=== PATIENT | male | born 1975 | race Caucasian/White ===

== ENCOUNTER 2016-10-17 17:43 | Emergency (ER) | payer MEDICARE, MEDICAID ==
[2016-10-17] MEDS ORDERED: ACETAMINOPHEN 500 MG TABLET PO ONE (18:26)
--- NOTE | 2016-10-17 18:35 | ERNOTE ---
Date of Service: 10/17/16 Time Seen by Provider: 10/17/16 18:12 Stated Complaint: COUGH. Presenting Symptoms:: cough, sore throat, runny nose, fever Source: patient Exam Limitations: no limitations Allergies/Adverse Reactions: Allergies No Known Allergies Allergy (Verified 10/17/16 17:53) Home Medications: HOME MEDICATIONS Furosemide [Lasix] 40 mg PO DAILY 09/16/12 [Last Taken 06/07/13] Spironolactone [Aldactone] 25 mg PO DAILY 09/16/12 [Last Taken 06/07/13] Atorvastatin Calcium [Lipitor] 40 mg PO HS #0 tablet 06/11/13 [Last Taken Unknown] Metoprolol Succinate [Toprol Xl] 200 mg PO DAILY #0 tablet.sa 06/11/13 [Last Taken Unknown] Losartan Potassium 50 mg PO DAILY 01/31/14 [Last Taken Unknown] Gemfibrozil [Lopid] 600 mg PO BID@0700,1700 #0 tablet 02/21/14 [Last Taken Unknown] Insulin Glargine,Hum.rec.anlog [Lantus] 70 units SC DAILY #0 vial 02/21/14 [ Last Taken Unknown] Insulin Lispro [Humalog] 0 - 16 units SC AC #0 vial 02/21/14 [Last Taken Unknown ] Acetaminophen [Tylenol] 1,000 mg PO TID #14 tablet 10/17/16 [Last Taken Unknown] Fenofibrate 134 mg PO DAILY 10/17/16 [Last Taken Unknown] Guaifenesin [Mucinex] 1,200 mg PO BID #10 tbmp.12hr 10/17/16 [Last Taken Unknown ] Oseltamivir Phosphate [Tamiflu] 75 mg PO DAILY #9 cap 10/17/16 [Last Taken Unknown] Pregabalin [Lyrica] 300 mg PO BID 10/17/16 [Last Taken Unknown] Tramadol HCl [Rybix Odt] 50 mg PO BID PRN 10/17/16 [Last Taken Unknown] - Pain Score Pain Score #1 Pain Score: 4 - History of Present Ilness Narrative: patient is a 41 year old obese male with known history of insulin dependent diabetes and heavy tobacco use (2ppd) and "heart issues" who presents today with complaints of a sudden onset of dry cough, fever, chills, body aches, nasal drainage and nausea since last night. States he felt fine yesterday afternoon yet sudden onset last night. [facility] has not been around sick contacts and nobody in house is ill. [facility] blood sugars were WNL yesterday but has not checked them today. Denies difficulty breathing or CP Date (Duration): 10/16/16 Timing: constant, getting worse Severity: moderate Frequency/Possible Cause: Reports: no prior episodes, smoke exposure Modifying Factors - Improves: Reports: nothing Modifying Factors - Worsens: Reports: activity, coughing, deep breath Associated Symptoms: Reports: cough, nasal congestion, nasal drainage, muscle aches, fever/chills Review of Systems - Review of Systems Constitutional: Present: See HPI, fever, chills, weakness, fatigue EYE: Present: see HPI ENT: Present: See HPI, nasal drainage, throat swelling Respiratory: Present: See HPI, cough. Absent: shortness of breath, orthopnea, wheezing, stridor Cardiology: Present: See HPI. Absent: chest pain, palpitations, syncope, edema Gastrointestinal/Abdominal: Present: See HPI, nausea, eating less, drinking less. Absent: vomiting, diarrhea, abdominal pain Genitourinary: Present: no symptoms reported Musculoskeletal: Present: no symptoms reported. Absent: back pain, muscle pain , muscle stiffness, joint pain, joint swelling Skin: Absent: rash, lesions, change in color Neurological: Present: no symptoms reported, headache. Absent: dizziness/light- headedness, weakness, numbness, tingling, tremors Hematologic/Lymphatic: Absent: swollen glands - Patient's Past Medical History Patient History - Medical: Anxiety, Chronic Pain, Diabetes Type 2 Insulin Dependent, GERD Patient History - Cancer: No Hx of Cancer Patient History - Surgical Procedures: Appendectomy, T & A, Other - Social History Smoking Status: Current every day smoker Have you smoked in the past 12 months: Yes Physical Exam - Physical Exam General Appearance: Present: wd/wn, alert, no apparent distress Eye Exam: PERRL: bilateral, Conjunctivae pale: bilateral Ears, Nose, Throat: Present: normal ENT inspection, hearing grossly normal, dry mucous membranes Neck: Present: normal inspection, nontender, supple. Absent: lymphadenopathy (R ), lymphadenopathy (L) Respiratory: Present: no respiratory distress, normal breath sounds, no accessory muscle use, chest nontender, lungs clear, wheezing. Absent: chest tenderness, respiratory distress Cardiovascular/Chest: Present: regular rate, rhythm, no murmur Peripheral Pulses: N=norm/S=strong/W=weak/B=bound/A=absent: Radial (R): Strong, Radial (L): Strong Gastrointestinal/Abdominal: Present: normal bowel sounds, nontender, nondistended, soft, no organomegaly Back Exam: Present: normal range of motion, no CVA tenderness, no vertebral tenderness Extremity Exam: Present: normal inspection, non-tender, no edema, normal range of motion Neurological Exam: Present: alert, oriented, normal mood/affect, no motor/ sensory deficits Skin Exam: Present: normal color, warm/dry Lymphatic Exam: Present: no adenopathy ED Progress - Vital Signs Patient's Vital Signs:: I have reviewed the patient's vital signs. Vital Signs: Vital Signs 10/17/16 17:50 Temperature 38.3 C H Pulse Rate 120 H Respiratory 14 Rate Blood Pressure 113/63 O2 Sat by Pulse 95 Oximetry - Progress/Reassessment Chief Complaint: Cough Departure - Departure Clinical Impression: Influenza A Disposition: Home Follow Up Needed Condition: Good Instructions: Smoking Cessation, Tips for Success, [id number], Influenza, Adult, [id number] Additional Instructions: Tylenol every 6 hours for fever and pain. Continue to drink water/Gatorade throughout the day. Referrals: Yael Murdock MD [Primary Care Provider] - Prescriptions: Acetaminophen [Tylenol] 1,000 mg PO TID #14 tablet Guaifenesin [Mucinex] 1,200 mg PO BID #10 tbmp.12hr Oseltamivir Phosphate [Tamiflu] 75 mg PO DAILY #9 cap
[2016-10-17] MEDS ORDERED: OSELTAMIVIR PHOSPHATE 75 MG CAPSULE PO ONE ×2 (19:05→19:09)
[2016-10-17 19:17] VITALS: BP 118/70
== END 2016-10-17 19:14 | disposition home or self-care (01) ==
LOC: ER 17:43
DX: J09.X2 Influenza due to identified novel influenza A virus with other respiratory manifestations (principal); F17.210 Nicotine dependence, cigarettes, uncomplicated; E11.9 Type 2 diabetes mellitus without complications; Z79.4 Long term (current) use of insulin

== ENCOUNTER 2016-10-21 23:22 | Emergency (ER) | payer MEDICARE, MEDICAID ==
[2016-10-21 23:44] LABS: Urine Bilirubin 1 mg/dl (NEGATIVE); Urine Blood 250 /ul (NEGATIVE); Urine Ketone Negative (NEGATIVE); Urine Nitrite Negative (NEGATIVE); Urine Protein 100 mg/dL (NEGATIVE); Urine Specific Gravity >=1.030 SP.GR. (1.005-1.030); Urine Urobilinogen Normal (NORMAL); Urine pH 5.5 pH (5.0-7.0)
--- NOTE | 2016-10-21 23:50 | ERNOTE ---
Back Pain ER HPI Time Seen by Provider: 10/21/16 23:39 Source: patient Exam Limitations: no limitations Immunizations: IMMUNIZATION HX Immunizations Up to Date Yes History of Influenza Vaccine No Hx Pneumococcal Vaccination No Allergies/Adverse Reactions: Allergies No Known Allergies Allergy (Verified 10/17/16 17:53) Home Medications: HOME MEDICATIONS Furosemide [Lasix] 40 mg PO DAILY 09/16/12 [Last Taken 06/07/13] Spironolactone [Aldactone] 25 mg PO DAILY 09/16/12 [Last Taken 06/07/13] Atorvastatin Calcium [Lipitor] 40 mg PO HS #0 tablet 06/11/13 [Last Taken Unknown] Metoprolol Succinate [Toprol Xl] 200 mg PO DAILY #0 tablet.sa 06/11/13 [Last Taken Unknown] Losartan Potassium 50 mg PO DAILY 01/31/14 [Last Taken Unknown] Gemfibrozil [Lopid] 600 mg PO BID@0700,1700 #0 tablet 02/21/14 [Last Taken Unknown] Insulin Glargine,Hum.rec.anlog [Lantus] 70 units SC DAILY #0 vial 02/21/14 [ Last Taken Unknown] Insulin Lispro [Humalog] 0 - 16 units SC AC #0 vial 02/21/14 [Last Taken Unknown ] Acetaminophen [Tylenol] 1,000 mg PO TID #14 tablet 10/17/16 [Last Taken Unknown] Fenofibrate 134 mg PO DAILY 10/17/16 [Last Taken Unknown] Guaifenesin [Mucinex] 1,200 mg PO BID #10 tbmp.12hr 10/17/16 [Last Taken Unknown ] Oseltamivir Phosphate [Tamiflu] 75 mg PO DAILY #9 cap 10/17/16 [Last Taken Unknown] Pregabalin [Lyrica] 300 mg PO BID 10/17/16 [Last Taken Unknown] Tramadol HCl [Rybix Odt] 50 mg PO BID PRN 10/17/16 [Last Taken Unknown] Narrative: pt states that he had rapid onset of right flank pain "like I was kicked by donkey" earlier this evening. continues to have pain and difficulty urinating Timing: Reports: constant, getting worse Quality/Severity: Reports: moderate, sharpness Activities at Onset: Reports: none Recent Injury?: Reports: no Modifying Factors - (Improves): Reports: nothing Modifying Factors - (Worsens): Reports: nothing Associated Symptoms: Reports: problems urinating Review of Systems - Review of Systems Constitutional: Present: recent illness - influenza diagnosed 4 days ago EYE: Present: no symptoms reported ENT: Present: no symptoms reported Respiratory: Present: cough Cardiology: Present: no symptoms reported Gastrointestinal/Abdominal: Present: no symptoms reported Genitourinary: Present: frequency, pain, decreased urinary output Musculoskeletal: Present: back pain Skin: Present: no symptoms reported Neurological: Present: no symptoms reported Endocrine: Present: no symptoms reported Hematologic/Lymphatic: Present: no symptoms reported Psych: Present: no symptoms reported - Patient's Past Medical History Patient History - Medical: Anxiety, Chronic Pain, Diabetes Type 2 Insulin Dependent, GERD, Kidney stone Patient History - Cancer: No Hx of Cancer Patient History - Surgical Procedures: Appendectomy, T & A, Other - Social History Living Situations: home Smoking Status: Current every day smoker Patient requests Smoking Cessation Consult: Yes Initiate information on Smoking Cessation: Yes Alcohol Use: none Drug Use: none Physical Exam - Physical Exam General Appearance: Present: wd/wn, alert, mild distress, moderate distress Ears, Nose, Throat: Present: normal ENT inspection, hearing grossly normal Respiratory: Present: no respiratory distress, no accessory muscle use Gastrointestinal/Abdominal: Present: normal bowel sounds, nontender Back Exam: Present: no vertebral tenderness, CVA tenderness (R). Absent: CVA tenderness (L), muscle spasm Extremity Exam: Present: normal inspection, normal range of motion Neurological Exam: Present: alert, oriented, no motor/sensory deficits Skin Exam: Present: normal color, warm/dry Lymphatic Exam: Present: no adenopathy ED Progress - Vital Signs Vital Signs: Vital Signs 10/21/16 23:29 Temperature 36.5 C Pulse Rate 89 Respiratory 18 Rate Blood Pressure 147/99 O2 Sat by Pulse 96 Oximetry - Progress/Reassessment Chief Complaint: Back Pain Departure Clinical Impression: Kidney stone - Departure Disposition: Home self-care Condition: Good Instructions: Kidney Stones, [id number] Additional Instructions: drink lots of fluids. See your regular doctor if not improving in 1-2 days Referrals: Yael Murdock MD [Primary Care Provider] -
[2016-10-21 23:55] LABS: Urine Appearance Clear; Urine Color Yellow; Urine WBC None Seen /hpf (0-5)
[2016-10-21 23:56] LABS: Urine Bacteria TRACE; Urine Fine Granular Cast 0-5 /LPF; Urine Hyaline Cast 0-5 /LPF
[2016-10-22] MEDS ORDERED: KETOROLAC TROMETHAMINE 60 MG/2 ML VIAL IM ONE ×2 (00:12→00:13)
[2016-10-22 02:11] VITALS: BP 134/88
== END 2016-10-22 01:35 | disposition home or self-care (01) ==
LOC: ER 23:22
DX: N20.0 Calculus of kidney (principal); F17.210 Nicotine dependence, cigarettes, uncomplicated

== ENCOUNTER 2019-06-13 17:53 | Observation (INO) ==
[2019-06-13] MEDS ORDERED: ONDANSETRON HCL/PF 2 MG/ML VIAL IV ONE (18:05)
[2019-06-13] MEDS ORDERED: NORMAL SALINE 1,000 ML IV ONE ×3 (18:05→21:47)
[2019-06-13] MEDS ORDERED: diphenhydrAMINE HCL 50 MG/ML VIAL IV ONE (18:06)
--- NOTE | 2019-06-13 18:14 | ERNOTE ---
<Bhavesh Tomlinson - Last Filed: 06/13/19 19:51> Medical Problem HPI - General Chief Complaint: Nausea/Vomiting Time Seen by Provider: 06/13/19 18:03 Source: patient Exam Limitations: no limitations - Immun/Allergies/Home Medications Immunizations: IMMUNIZATION HX Immunizations Up to Date Yes History of Influenza Vaccine No Hx Pneumococcal Vaccination No Allergies/Adverse Reactions: Allergies No Known Allergies Allergy (Verified 06/14/19 03:04) Home Medications: HOME MEDICATIONS Furosemide [Lasix] 40 mg PO DAILY 09/16/12 [Last Taken 06/07/13] Atorvastatin Calcium [Lipitor] 40 mg PO HS #0 tab 06/11/13 [Last Taken Unknown] Metoprolol Succinate [Toprol Xl] 200 mg PO DAILY #0 tablet.sa 06/11/13 [Last Taken Unknown] Losartan Potassium 50 mg PO DAILY 01/31/14 [Last Taken Unknown] Acetaminophen [Tylenol] 1,000 mg PO TID #14 tab 10/17/16 [Last Taken Unknown] Fenofibrate 134 mg PO DAILY 10/17/16 [Last Taken Unknown] Pregabalin [Lyrica] 300 mg PO BID 10/17/16 [Last Taken Unknown] Allopurinol [Zyloprim] 100 mg PO DAILY #30 tab 01/13/18 [Last Taken Unknown] Albuterol Sulfate [Proair Hfa] 2 puff INHALATION Q4H PRN #1 inhaler 07/19/18 [Last Taken Unknown] insulin U-100 regular human 100 unit/mL injection solution 90 unit SUBCUT TID ml 01/10/19 [Last Taken Unknown] amitriptyline 50 mg tablet 50 mg PO DAILY #30 tab 02/16/19 [Last Taken Unknown] metformin ER 500 mg tablet,extended release 24 hr 500 mg PO BID #120 tab 02/16/19 [Last Taken Unknown] sacubitril 97 mg-valsartan 103 mg tablet 1 tab PO DAILY #60 tab 02/16/19 [Last Taken Unknown] semaglutide 0.25 mg or 0.5 mg (2 mg/1.5 mL) subcutaneous pen injector 0.5 mg SUBCUT .WEEKLY #2 ml 02/16/19 [Last Taken Unknown] spironolactone 25 mg tablet 25 mg PO DAILY #30 tab 02/16/19 [Last Taken Unknown] - History of Present History Narrative: Patient complains of multiple bouts of diarrhea. He also feels as though his tongue is a little bit swollen from an unknown origin. Patient is also been hav ing intermittent nausea with this as well. Timing: intermittent Severity: moderate Review of Systems - Review of Systems Constitutional: Present: See HPI EYE: Present: no symptoms reported ENT: Present: See HPI Respiratory: Present: no symptoms reported Cardiology: Present: no symptoms reported Gastrointestinal/Abdominal: Present: See HPI Genitourinary: Present: no symptoms reported Musculoskeletal: Present: no symptoms reported Skin: Present: no symptoms reported Neurological: Present: no symptoms reported Endocrine: Present: no symptoms reported Hematologic/Lymphatic: Present: no symptoms reported Psych: Present: no symptoms reported Medical History (Updated 06/11/19 @ 00:01 by ) CHF (congestive heart failure) Cardiomyopathy Chronic renal failure Diabetes GERD (gastroesophageal reflux disease) Gout Hyperlipidemia Hypertension Kidney stones Left knee pain Onset Date: Unknown Obstructive sleep apnea Surgical History: Surgical History (Updated 12/20/18 @ 09:31 by Julieta Yadav RN) History of appendectomy History of repair of ACL Hx of hand surgery Onset Date: 04/17/13 right hand-removal of 2 screws dorsal hand Hx of tonsillectomy history of wrist fusion Family History: Family History (Updated 12/20/18 @ 09:42 by Julieta Yadav RN) Mother Diabetes Social History: (Last Reviewed 06/13/19 @ 18:02 by Linda Villagomez RN) Social History: Marital status: lives independently: Yes household members: friend(s) number of children: 5 current occupational status: unemployed Highest education level completed: some college, no degree Service: No Tobacco: Smoking Status: Current every day smoker tobacco type: cigarettes Smoking cigarettes per day: 10.0 Smoking packs per day: 0.5 Alcohol: alcohol intake: current alcohol intake frequency: holiday/special occasion Substance Use: substance use type: does not use Dietary Habits: caffeine: Yes caffeine comment: occasional Type: carbonated beverages Physical Exam - Physical Exam General Appearance: Present: wd/wn, alert, moderate distress Head Exam: Present: normal inspection, no evidence of injury Eye Exam: Normal inspection: bilateral, PERRL: bilateral Ears, Nose, Throat: Present: normal pharynx, dry mucous membranes Neck: Present: normal inspection, nontender Respiratory: Present: no respiratory distress, normal breath sounds, no accessory muscle use, chest nontender, lungs clear Cardiovascular/Chest: Present: no murmur, normal peripheral pulses, tachycardia Gastrointestinal/Abdominal: Present: nontender, nondistended, soft, no organomegaly, abnormal bowel sounds - Hyperactive Rectal Exam: Present: deferred Back Exam: Present: normal inspection, normal range of motion Extremity Exam: Present: normal inspection, non-tender, no edema, normal range of motion Neurological Exam: Present: alert, oriented, normal mood/affect Skin Exam: Present: normal color, warm/dry Lymphatic Exam: Present: no adenopathy Progress - Results and Orders Patient's Lab Results:: I have reviewed the patient's lab results. - Vital Signs Patient's Vital Signs:: I have reviewed the patient's vital signs. Vital Signs: Vital Signs 06/13/19 17:59 Temperature 36.2 C Pulse Rate 120 H Respiratory Rate 15 Blood Pressure 138/66 O2 Sat by Pulse Oximetry 119 H - Progress/Reassessment Chief Complaint: Nausea/Vomiting - Transfer of Care Physician Sign Out: Bhavesh Tomlinson Receiving Physician: Michael Burton Expected Disposition: Discharge Plan - Plan Plan: I am suspecting that the patient is 2 to 3 L behind in fluid. We did give him 1 L fluid initially and he still has not felt the urge to urinate. I am going to turn the patient over to Dr. Burton and order a second liter of normal saline. Departure Clinical Impression: Dehydration, Dental infection Diarrhea Qualifiers: Diarrhea type: unspecified type Qualified Code(s): R19.7 - Diarrhea, unspecified Hypotension Qualifiers: Hypotension type: other hypotension type Qualified Code(s): I95.89 - Other hypotension - Departure Disposition: Still a patient Condition: Fair <Michael Burton - Last Filed: 06/14/19 03:21> Medical Problem HPI - Immun/Allergies/Home Medications Immunizations: IMMUNIZATION HX Immunizations Up to Date Yes History of Influenza Vaccine No Hx Pneumococcal Vaccination No Medical History (Updated 06/14/19 @ 02:41 by Michael Burton DO) CHF (congestive heart failure) Cardiomyopathy Chronic renal failure Diabetes GERD (gastroesophageal reflux disease) Gout Hyperlipidemia Hypertension Kidney stones Left knee pain Onset Date: Unknown Obstructive sleep apnea Surgical History: Surgical History (Updated 12/20/18 @ 09:31 by Julieta Yadav RN) History of appendectomy History of repair of ACL Hx of hand surgery Onset Date: 04/17/13 right hand-removal of 2 screws dorsal hand Hx of tonsillectomy history of wrist fusion Family History: Family History (Updated 12/20/18 @ 09:42 by Julieta Yadav RN) Mother Diabetes Social History: (Last Reviewed 06/14/19 @ 03:05 by Terence Coleman RN) Social History: Marital status: lives independently: Yes household members: friend(s) number of children: 5 current occupational status: unemployed Highest education level completed: some college, no degree Service: No Tobacco: Smoking Status: Current every day smoker tobacco type: cigarettes Smoking cigarettes per day: 10.0 Smoking packs per day: 0.5 Alcohol: alcohol intake: current alcohol intake frequency: holiday/special occasion Substance Use: substance use type: does not use Dietary Habits: caffeine: Yes caffeine comment: occasional Type: carbonated beverages Physical Exam - Physical Exam General Appearance: Present: wd/wn, moderate distress, lethargic, obese Head Exam: Present: normal inspection, no evidence of injury Respiratory: Present: no respiratory distress, no accessory muscle use Progress - Results and Orders Patient's Lab Results:: I have reviewed the patient's lab results. Results and Orders: Laboratory Tests 06/13/19 06/13/19 06/13/19 18:18 18:18 22:22 WBC 7.4 Hgb 14.9 Hct 46.8 Plt Count 165 Sodium 140 Potassium 4.7 H Chloride 101 Anion Gap 16.6 H BUN 35 H Creatinine 3.44 H D Random Glucose 152 H Lactic Acid, Venous 1.0 Calcium 9.4 Total Bilirubin 0.5 AST 22 ALT 25 Alkaline Phosphatase 44 L Total Protein 7.5 Albumin 3.3 L Lipase 106 - Vital Signs Patient's Vital Signs:: I have reviewed the patient's vital signs. Vital Signs: Vital Signs 06/13/19 17:59 Temperature 36.2 C Pulse Rate 120 H Respiratory Rate 15 Blood Pressure 138/66 O2 Sat by Pulse Oximetry 119 H - CT/Ultrasound CT/Ultrasound Narrative: CT maxillofacial without IV contrast. No acute fracture or aggressive appearing osseous lesion. Anterior left hard palate chronic erosions versus abscess associated with left anterior maxillary chronic tooth extractions - Progress/Reassessment Progress:: Re-examined Progress Note-Subjective: 06/13/19 21:49 Checked on the patient as his fluids were finished. He states he did not feel any better and has not yet urinated. Checked his vital signs and his blood pressure has been trending down and he is now 94/36. Have the nurse going and recheck his blood pressure and we found that his blood pressure has been trending down over the past couple of hours. Physical exam: Gingiva over the upper central incisors is dusky to green. Patient states he has had no injury there. Plan: Blood cultures, lactic acid, another liter of fluids is ordered. We will give patient a gram of Rocephin after blood cultures have been drawn. Will reassess when the patient has had this additional liter of fluids Patient did seem to be improving and we were considering discharge when his blood pressure continued to decrease and his tachycardia did not resolve. I talked to the patient about staying on observation overnight with IV fluids and antibiotics and patient agreed with that 06/14/19 01:[address] Green discussed and observation admit for IV fluids and frequent vital sign checks. I am waiting a call back. 06/14/19 01:[address] Green 3 additional times and have not heard back from her we will try to find additional way to get a hold of her. 06/14/19 01:51 channel process supervisor did get a hold of Dr. Green, she agrees with the observation admit with antibiotic coverage for anaerobes
[2019-06-13 18:21] LABS: Hematocrit 46.8 % (42.0-52.0); Hemoglobin 14.9 gm/dL (13.5-18.0); Mean Cell Volume 85.2 fl (78-100); Mean Corpuscular Hemoglobin 27.1 pg (27-31); Mean Corpuscular Hgb Conc 31.8 g/dl (32-36); Mean Platelet Volume 10.5 fl (8-11.3); Neutrophil % 67.6 % (42-75.0); Platelet Count 165 K/mm3 (150-450); Red Blood Count 5.49 M/mm3 (4.7-6.0); Red Cell Distribution Width 15.1 % (11.5-14.0); White Blood Count 7.4 K/mm3 (4.0-10.5)
[2019-06-13 18:32] LABS: Albumin * 3.3 gm/dl (3.4-5.0); Anion Gap 16.6 mmol/L (6.8-13.8); BUN/Creatinine Ratio 10.2 (9.0-21.6); Bilirubin, Total 0.5 mg/dL (0.0-1.1); Ca. Corrected For Albumin 9.6 mg/dL (8.4-10.2); Calcium * 9.4 mg/dL (7.9-10.9); Carbon Dioxide 27.1 mmol/L (24-32.6); Potassium 4.7 mmol/L (3.4-4.6); Total Protein 7.5 gm/dL (6.2-8.2)
[2019-06-13] MEDS ORDERED: cefTRIAXone SODIUM 1,000 MG/100 ML BAG IV ONE (21:54)
[2019-06-13] MEDS ORDERED: NALBUPHINE HCL 20 MG/ML AMPUL IV ONE (22:35)
[2019-06-14] MEDS ORDERED: PIPERACILLIN SODIUM/TAZOBACTAM 3.375 GM in DEXTROSE 5 % IN WATER 100 ML IV SCH ×2 (02:45)
[2019-06-14 03:24] LABS: Urine Appearance Slightly Cloudy (CLEAR); Urine Bacteria TRACE; Urine Bilirubin 1 mg/dl (NEGATIVE); Urine Blood Negative /ul (NEGATIVE); Urine Color Dark Yellow; Urine Hyaline Cast 0-5 /LPF; Urine Ketone Negative (NEGATIVE); Urine Nitrite Negative (NEGATIVE); Urine Protein 15 mg/dL (NEGATIVE); Urine RBC None Seen /hpf (0-5); Urine Specific Gravity 1.025 SP.GR. (1.005-1.030); Urine Urobilinogen Normal (NORMAL); Urine WBC 0-5 /hpf (0-5); Urine pH 5.5 pH (5.0-7.0)
[2019-06-14] MEDS: ACETAMINOPHEN 500 MG TABLET PO PRN ×2 (03:57→22:04)
[2019-06-14] MEDS: NORMAL SALINE 1,000 ML IV PRN (03:58)
[2019-06-14] MEDS: SACCHAROMYCES BOULARDII 250 MG CAPSULE PO SCH ×2 (10:17→21:43)
[2019-06-14] MEDS: metroNIDAZOLE/SODIUM CHLORIDE 500 MG/100 ML BAG IV SCH ×2 (10:18→17:32)
--- NOTE | 2019-06-14 10:22 | HP ---
Chief Complaint - Chief Complaint Date of Service: 06/14/19 Time of Service: 09:02 Chief Complaint: Mouth pain for 3 days History of Present Illness: 43-year-old male with a past history of cardiomyopathy, insulin-dependent diabetes, congestive heart failure, GERD,, hypertension, hyperlipidemia, kidney stones, obstructive sleep apnea presents from home with complaints of mouth pain for the past 3 days. Symptoms associated with diarrhea. In the ER he was found to be hypotensive and tachycardic with fever. Renal function was also found to be he was also found to have acute kidney injury with a GFR of 21, creatinine of 3.44 and GFR 35. He was found to have an periodontal abscess on the roof of his mouth. He was started on ceftriaxone and Zosyn in the emergency department. He has been admitted for further evaluation and management of his hypotension and acute kidney injury. Medical History (Updated 06/14/19 @ 10:41 by Mikki Green MD) CHF (congestive heart failure) Cardiomyopathy Chronic renal failure Diabetes GERD (gastroesophageal reflux disease) Gout Hyperlipidemia Hypertension Kidney stones Left knee pain Onset Date: Unknown Obstructive sleep apnea Surgical History: Surgical History (Updated 06/14/19 @ 10:22 by Mikki Green MD) History of appendectomy History of repair of ACL Hx of hand surgery Onset Date: 04/17/13 right hand-removal of 2 screws dorsal hand Hx of tonsillectomy history of wrist fusion Family History: Family History (Updated 12/20/18 @ 09:42 by Julieta Yadav RN) Mother Diabetes Social History: (Last Reviewed 06/14/19 @ 03:05 by Terence Coleman RN) Social History: Marital status: lives independently: Yes household members: friend(s) number of children: 5 current occupational status: unemployed Highest education level completed: some college, no degree Service: No Tobacco: Smoking Status: Current every day smoker tobacco type: cigarettes Smoking cigarettes per day: 10.0 Smoking packs per day: 0.5 Alcohol: alcohol intake: current alcohol intake frequency: holiday/special occasion Substance Use: substance use type: does not use Dietary Habits: caffeine: Yes caffeine comment: occasional Type: carbonated beverages Immunizations: IMMUNIZATION HX Immunizations Up to Date Yes History of Influenza Vaccine No Hx Pneumococcal Vaccination No Allergies/Adverse Reactions: Allergies Allergy/AdvReac Type Severity Reaction Status Date / Time No Known Allergies Allergy Verified 06/14/19 03:04 Home Medications: HOME MEDICATIONS Furosemide [Lasix] 40 mg PO DAILY 09/16/12 [Last Taken 06/07/13] Atorvastatin Calcium [Lipitor] 40 mg PO HS #0 tab 06/11/13 [Last Taken Unknown] Metoprolol Succinate [Toprol Xl] 200 mg PO DAILY #0 tablet.sa 06/11/13 [Last Taken Unknown] Losartan Potassium 50 mg PO DAILY 01/31/14 [Last Taken Unknown] Acetaminophen [Tylenol] 1,000 mg PO TID #14 tab 10/17/16 [Last Taken Unknown] Fenofibrate 134 mg PO DAILY 10/17/16 [Last Taken Unknown] Pregabalin [Lyrica] 300 mg PO BID 10/17/16 [Last Taken Unknown] Allopurinol [Zyloprim] 100 mg PO DAILY #30 tab 01/13/18 [Last Taken Unknown] Albuterol Sulfate [Proair Hfa] 2 puff INHALATION Q4H PRN #1 inhaler 07/19/18 [Last Taken Unknown] insulin U-100 regular human 100 unit/mL injection solution 90 unit SUBCUT TID ml 01/10/19 [Last Taken Unknown] amitriptyline 50 mg tablet 50 mg PO DAILY #30 tab 02/16/19 [Last Taken Unknown] metformin ER 500 mg tablet,extended release 24 hr 500 mg PO BID #120 tab 02/16/19 [Last Taken Unknown] sacubitril 97 mg-valsartan 103 mg tablet 1 tab PO DAILY #60 tab 02/16/19 [Last Taken Unknown] semaglutide 0.25 mg or 0.5 mg (2 mg/1.5 mL) subcutaneous pen injector 0.5 mg SUBCUT .WEEKLY #2 ml 02/16/19 [Last Taken 06/05/19] spironolactone 25 mg tablet 25 mg PO DAILY #30 tab 02/16/19 [Last Taken Unknown] Exam - Exam Vital Signs: Vital Signs - Last Taken Temp 36.5 C 06/14/19 10:00 Pulse 106 H 06/14/19 10:00 Resp 20 06/14/19 10:00 BP 88/56 L 06/14/19 10:00 Pulse Ox 93 06/14/19 10:00 Diagnostic Studies: Abnormal Lab Results 09/07/2206/13/19 06/14/19 Range/Units 18:18 18:18 03:13 MCHC 31.8 L (32-36) g/dl RDW 15.1 H (11.5-14.0) % Immature Gran % (Auto) 0.90 H (0.001-0.429) % Immature Gran # (Auto) 0.07 H (0.000-0.0310) K/mm3 Potassium 4.7 H (3.4-4.6) mmol/L Anion Gap 16.6 H (6.8-13.8) mmol/L BUN 35 H (6-23) mg/dL Creatinine 3.44 H D (0.4-1.4) mg/dL Est GFR (Non-Af Amer) 21 L D (60-130) mL/min Random Glucose 152 H (70-110) mg/dL Alkaline Phosphatase 44 L (50-170) U/L Albumin 3.3 L (3.4-5.0) gm/dl Urine Protein 15 H (NEGATIVE) mg/dL Urine Bilirubin 1 H (NEGATIVE) mg/dl Uric Acid Crystals Few - 1+ H (NONE) /hpf Hyaline Casts 0-5 H (NONE) /LPF Laboratory Results WBC 7.4 K/mm3 (4.0-10.5) 06/13/19 18:18 RBC 5.49 M/mm3 (4.7-6.0) 06/13/19 18:18 Hgb 14.9 gm/dL (13.5-18.0) 06/13/19 18:18 Hct 46.8 % (42.0-52.0) 06/13/19 18:18 MCV 85.2 fl (78-100) 06/13/19 18:18 MCH 27.1 pg (27-31) 06/13/19 18:18 MCHC 31.8 g/dl (32-36) L 06/13/19 18:18 RDW 15.1 % (11.5-14.0) H 06/13/19 18:18 Plt Count 165 K/mm3 (150-450) 06/13/19 18:18 MPV 10.5 fl (8-11.3) 06/13/19 18:18 Immature Gran % (Auto) 0.90 % (0.001-0.429) H 06/13/19 18:18 Immature Gran # (Auto) 0.07 K/mm3 (0.000-0.0310) H 06/13/19 18:18 67.6 % (42-75.0) 06/13/19 18:18 23.9 % (20-51) 06/13/19 18:18 6.9 % (0.0-9) 06/13/19 18:18 0.3 % (0.0-3.0) 06/13/19 18:18 0.4 % (0.0-1.0) 06/13/19 18:18 Nucleated RBC % 0.0 k/mm3 (0-1) 06/13/19 18:18 5.0 K/mm3 (1.3-6.0) 06/13/19 18:18 1.77 k/mm3 (1.5-3.5) 06/13/19 18:18 0.5 k/mm3 (0.0-1.0) 06/13/19 18:18 0.0 k/mm3 (0.0-0.7) 06/13/19 18:18 Absolute Basophils 0.0 k/mm3 (0.0-0.1) 06/13/19 18:18 Sodium 140 mmol/L (132-142) 06/13/19 18:18 141 mmol/L (130-142) 06/13/19 18:18 Potassium 4.7 mmol/L (3.4-4.6) H 06/13/19 18:18 Chloride 101 mmol/L (97-106) 06/13/19 18:18 Carbon Dioxide 27.1 mmol/L (24-32.6) 06/13/19 18:18 16.6 mmol/L (6.8-13.8) H 06/13/19 18:18 BUN 35 mg/dL (6-23) H 06/13/19 18:18 3.44 mg/dL (0.4-1.4) H D 06/13/19 18:18 Est GFR (Non-Af Amer) 21 mL/min (60-130) L D 06/13/19 18:18 10.2 (9.0-21.6) 06/13/19 18:18 152 mg/dL (70-110) H 06/13/19 18:18 1.0 mmol/L (0.4-2.0) 06/13/19 22:22 Calcium 9.4 mg/dL (7.9-10.9) 06/13/19 18:18 Calcium Adj for Albumin 9.6 mg/dL (8.4-10.2) 06/13/19 18:18 0.5 mg/dL (0.0-1.1) 06/13/19 18:18 AST 22 U/L (0-48) 06/13/19 18:18 ALT 25 U/L (19-67) 06/13/19 18:18 44 U/L (50-170) L 06/13/19 18:18 7.5 gm/dL (6.2-8.2) 06/13/19 18:18 3.3 gm/dl (3.4-5.0) L 06/13/19 18:18 106 U/L (73-393) 06/13/19 18:18 Dark yellow 06/14/19 03:13 Slightly cloudy (CLEAR) 06/14/19 03:13 5.5 pH (5.0-7.0) 06/14/19 03:13 Ur Specific [place] 1.025 SP.GR. (1.005-1.030) 06/14/19 03:13 15 mg/dL (NEGATIVE) H 06/14/19 03:13 Negative mg/dL (NEGATIVE) 06/14/19 03:13 Negative mg/dL (NEGATIVE) 06/14/19 03:13 Negative /ul (NEGATIVE) 06/14/19 03:13 Negative (NEGATIVE) 06/14/19 03:13 1 mg/dl (NEGATIVE) H 06/14/19 03:13 Negative (NEGATIVE) 06/14/19 03:13 Prot Sulfosalicylic Acd Negative mg/dL (0) 06/14/19 03:13 Normal EU/dl (NORMAL) 06/14/19 03:13 Ur Leukocyte Esterase Negative /ul (NEGATIVE) 06/14/19 03:13 None seen /hpf (0-5) 06/14/19 03:13 0-5 /hpf (0-5) 06/14/19 03:13 Ur Epithelial Cells 0-5 /hpf (0-5) 06/14/19 03:13 Uric Acid Crystals Few - 1+ /hpf (NONE) H 06/14/19 03:13 Trace (NONE) 06/14/19 03:13 Hyaline Casts 0-5 /LPF (NONE) H 06/14/19 03:13 No culture indicated 06/14/19 03:13 Assessment/Plan - Narrative Narrative: 43-year-old male with a past history of cardiomyopathy, insulin-dependent diabetes, congestive heart failure, GERD,, hypertension, hyperlipidemia, kidney stones, obstructive sleep apnea presents from home with complaints of mouth pain for the past 3 days. Symptoms associated with diarrhea. In the ER he was found to be hypotensive and tachycardic with fever. Renal function was also found to be he was also found to have acute kidney injury with a GFR of 21, creatinine of 3.44 and GFR 35. He was found to have an periodontal abscess on the roof of his mouth. He was started on ceftriaxone and Zosyn in the emergency department. He has been admitted for further evaluation and management of his hypotension and acute kidney injury. He has not had any episodes of diarrhea today. He continues to complain of mouth pain. I will change his antibiotic regimen to ceftriaxone and Flagyl. I will continue with IV fluid hydration at 75 cc/h. Give Tylenol as needed for pain. Hold renal toxic medications. - Assessment/Plan (1) Acute renal insufficiency Problem: Acute (2) Acute periodontal abscess Problem: Acute (3) Dehydration Problem: Acute (4) Gout Problem: Chronic (5) HTN (hypertension) Problem: Chronic (6) Diabetes mellitus, insulin dependent (IDDM), controlled Problem: Chronic
[2019-06-14] MEDS ORDERED: ALBUTEROL SULFATE 2.5 MG/0.5 ML VIAL.NEB IH PRN (10:32)
[2019-06-14 10:54] LABS: Hematocrit 41.1 % (42.0-52.0); Mean Cell Volume 85.6 fl (78-100); Mean Corpuscular Hemoglobin 27.1 pg (27-31); Mean Corpuscular Hgb Conc 31.6 g/dl (32-36); Mean Platelet Volume 10.8 fl (8-11.3); Neutrophil # 2.4 K/mm3 (1.3-6.0); Platelet Count 130 K/mm3 (150-450); Red Cell Distribution Width 15.1 % (11.5-14.0); White Blood Count 5.1 K/mm3 (4.0-10.5)
[2019-06-14] MEDS: FENOFIBRATE,MICRONIZED 134 MG CAPSULE PO SCH (11:25)
[2019-06-14] MEDS: ALLOPURINOL 100 MG TABLET PO SCH (11:25)
[2019-06-14] MEDS: PREGABALIN 75 MG CAPSULE PO SCH ×2 (11:30→22:03)
[2019-06-14 11:36] LABS: Albumin * 2.8 gm/dl (3.4-5.0); Anion Gap 14.1 mmol/L (6.8-13.8); BUN/Creatinine Ratio 17.2 (9.0-21.6); Bilirubin, Total 0.3 mg/dL (0.0-1.1); Ca. Corrected For Albumin 9.3 mg/dL (8.4-10.2); Calcium * 8.7 mg/dL (7.9-10.9); Carbon Dioxide 27.3 mmol/L (24-32.6); Potassium 4.4 mmol/L (3.4-4.6); Total Protein 6.7 gm/dL (6.2-8.2)
[2019-06-14] MEDS: INSULIN LISPRO 100 UNITS/ML VIAL SC SCH ×3 (11:56→22:10)
[2019-06-14] MEDS ORDERED: INSULIN REGULAR, HUMAN 100 UNITS/ML VIAL SC SCH (13:00)
[2019-06-14] MEDS ORDERED: AMITRIPTYLINE HCL 50 MG TABLET PO SCH (21:00)
[2019-06-14] MEDS ORDERED: ROSUVASTATIN CALCIUM 20 MG TABLET PO SCH (21:00)
[2019-06-15] MEDS: NORMAL SALINE 1,000 ML IV PRN (00:22)
[2019-06-15] MEDS: metroNIDAZOLE/SODIUM CHLORIDE 500 MG/100 ML BAG IV SCH ×2 (01:35→09:37)
[2019-06-15 05:49] LABS: Hematocrit 42.2 % (42.0-52.0); Hemoglobin 13.1 gm/dL (13.5-18.0); Mean Cell Volume 85.9 fl (78-100); Mean Corpuscular Hemoglobin 26.7 pg (27-31); Mean Platelet Volume 11.1 fl (8-11.3); Neutrophil # 2.1 K/mm3 (1.3-6.0); Neutrophil % 48.1 % (42-75.0); Platelet Count 116 K/mm3 (150-450); Red Blood Count 4.91 M/mm3 (4.7-6.0); White Blood Count 4.3 K/mm3 (4.0-10.5)
[2019-06-15 06:10] LABS: Albumin * 2.8 gm/dl (3.4-5.0); Anion Gap 10.8 mmol/L (6.8-13.8); BUN/Creatinine Ratio 20.5 (9.0-21.6); Bilirubin, Total 0.3 mg/dL (0.0-1.1); Ca. Corrected For Albumin 9.4 mg/dL (8.4-10.2); Calcium * 8.8 mg/dL (7.9-10.9); Carbon Dioxide 28.2 mmol/L (24-32.6); Total Protein 6.7 gm/dL (6.2-8.2)
[2019-06-15] MEDS: INSULIN LISPRO 100 UNITS/ML VIAL SC SCH ×2 (07:28→12:13)
[2019-06-15] MEDS: FENOFIBRATE,MICRONIZED 134 MG CAPSULE PO SCH (09:33)
[2019-06-15] MEDS: SACCHAROMYCES BOULARDII 250 MG CAPSULE PO SCH (09:33)
[2019-06-15] MEDS: ALLOPURINOL 100 MG TABLET PO SCH (09:34)
[2019-06-15] MEDS: PREGABALIN 75 MG CAPSULE PO SCH (10:17)
[2019-06-15] MEDS: ACETAMINOPHEN 500 MG TABLET PO PRN (10:18)
--- NOTE | 2019-06-15 10:50 | DS ---
(1) Acute renal insufficiency Problem: Resolved (2) Acute periodontal abscess Problem: Acute (3) Dehydration Problem: Resolved (4) Gout Problem: Chronic (5) HTN (hypertension) Problem: Chronic Qualifiers: Hypertension type: essential hypertension Qualified Code(s): I10 - Essential (primary) hypertension (6) Diabetes mellitus, insulin dependent (IDDM), controlled Problem: Chronic Description of Stay: 43-year-old male with a past history of cardiomyopathy, insulin-dependent diabetes, congestive heart failure, GERD,, hypertension, hyperlipidemia, kidney stones, obstructive sleep apnea presents from home with complaints of mouth pain for the past 3 days. Symptoms associated with diarrhea. In the ER he was found to be hypotensive and tachycardic with fever. Renal function was also found to be he was also found to have acute kidney injury with a GFR of 21, creatinine of 3.44 and GFR 35. He was found to have an periodontal abscess on the roof of his mouth. He was started on ceftriaxone and Zosyn in the emergency department. He has been admitted for further evaluation and management of his hypotension and acute kidney injury. He was placed on ceftriaxone and Flagyl for 2 days. I will send him home on Flagyl and Cefpodoxime for 10 more days. He needs to follow-up with a dentist as soon as possible. He has remained afebrile for over 24 hours, vitals are stable. His renal function has improved significantly with IV fluid hydration. He is tolerating a diet and is stable to go home today. Procedures Performed: none Results and Findings: Pending Mircobiology Results 06/13/19 22:22 Blood Blood Culture - Preliminary NO GROWTH 24 HOURS 06/13/19 22:22 Blood Blood Culture - Preliminary NO GROWTH 24 HOURS Lab Pending Results 06/13/19 18:18: WBC 7.4, RBC 5.49, Hgb 14.9, Hct 46.8, MCV 85.2, MCH 27.1, MCHC 31.8 L, RDW 15.1 H, Plt Count 165, MPV 10.5, Immature Gran % (Auto) 0.90 H, Immature Gran # (Auto) 0.07 H, Neutrophils % 67.6, Lymphocytes % 23.9, Monocytes % 6.9, Eosinophils % 0.3, Basophils % 0.4, Nucleated RBC % 0.0, Neutrophils # 5.0, Lymphocytes # 1.77, Monocytes # 0.5, Eosinophils # 0.0, Absolute Basophils 0.0 06/13/19 18:18: Sodium 140, Plasma Sodium 141, Potassium 4.7 H, Chloride 101, Carbon Dioxide 27.1, Anion Gap 16.6 H, BUN 35 H, Creatinine 3.44 H D, Est GFR (Non-Af Amer) 21 L D, BUN/Creatinine Ratio 10.2, Random Glucose 152 H, Calcium 9.4, Calcium Adj for Albumin 9.6, Total Bilirubin 0.5, AST 22, ALT 25, Alkaline Phosphatase 44 L, Total Protein 7.5, Albumin 3.3 L, Lipase 106 06/13/19 22:22: Lactic Acid, Venous 1.0 06/14/19 03:13: Urine Color Dark yellow, Urine Appearance Slightly cloudy, Urine pH 5.5, Ur Specific [place] 1.025, Urine Protein 15 H, Urine Glucose (UA) Negative, Urine Ketones Negative, Urine Blood Negative, Urine Nitrate Negative, Urine Bilirubin 1 H, Urine Ictotest Negative, Prot Sulfosalicylic Acd Negative, Urine Urobilinogen Normal, Ur Leukocyte Esterase Negative, Urine RBC None seen, Urine WBC 0-5, Ur Epithelial Cells 0-5, Uric Acid Crystals Few - 1+ H, Urine Bacteria Trace, Hyaline Casts 0-5 H, Urine Culture Comments No culture indicated 06/14/19 10:47: WBC 5.1 D, RBC 4.80, Hgb 13.0 L, Hct 41.1 L, MCV 85.6, MCH 27.1, MCHC 31.6 L, RDW 15.1 H, Plt Count 130 L, MPV 10.8, Immature Gran % (Auto) 0.80 H, Immature Gran # (Auto) 0.04 H, Neutrophils % 48.0, Lymphocytes % 40.7, Monocytes % 7.7, Eosinophils % 2.6, Basophils % 0.2, Nucleated RBC % 0.0, Neutrophils # 2.4, Lymphocytes # 2.07, Monocytes # 0.4, Eosinophils # 0.1, Absolute Basophils 0.0 06/14/19 10:47: Sodium 139, Plasma Sodium 140, Potassium 4.4, Chloride 102, Carbon Dioxide 27.3, Anion Gap 14.1 H, BUN 38 H, Creatinine 2.21 H D, Est GFR (Non-Af Amer) 35 L D, BUN/Creatinine Ratio 17.2, Random Glucose 178 H, Calcium 8.7, Calcium Adj for Albumin 9.3, Total Bilirubin 0.3, AST 31, ALT 18 L, Alkaline Phosphatase 30 L, Total Protein 6.7, Albumin 2.8 L 06/15/19 05:43: WBC 4.3, RBC 4.91, Hgb 13.1 L, Hct 42.2, MCV 85.9, MCH 26.7 L, MCHC 31.0 L, RDW 15.0 H, Plt Count 116 L, MPV 11.1, Immature Gran % (Auto) 0.50 H, Immature Gran # (Auto) 0.02, Neutrophils % 48.1, Lymphocytes % 39.5, Monocytes % 7.4, Eosinophils % 4.0 H, Basophils % 0.5, Nucleated RBC % 0.0, Neutrophils # 2.1, Lymphocytes # 1.70, Monocytes # 0.3, Eosinophils # 0.2, Absolute Basophils 0.0 06/15/19 05:43: Sodium 139, Plasma Sodium 140, Potassium 4.0, Chloride 104, Carbon Dioxide 28.2, Anion Gap 10.8, BUN 25 H, Creatinine 1.22, Est GFR (Non-Af Amer) 69 D, BUN/Creatinine Ratio 20.5, Random Glucose 168 H, Calcium 8.8, Calcium Adj for Albumin 9.4, Total Bilirubin 0.3, AST 27, ALT 24, Alkaline Phosphatase 40 L, Total Protein 6.7, Albumin 2.8 L Discharge Location: Home Disposition: Home self-care Condition: Fair Discharge Activity: Activity as tolerated Discharge Diet: Consistent carbs Referrals: Yael Murdock MD [Primary Care Provider] - Additional Patient Instructions (free text): -Please make TCM appointment unless assisted discharge, or if following up with outside provider. Thank you! Kizzy @ [phone] or Juana at [facility] [phone]. Follow up appointment on Wednesday 06/[address] [facility] in [place] for dental care- [phone]. Location: [address] [place] [address]. Please bring with you to your appointment: -Proof of income (if you want to do sliding-scale fee) -Health Records -Insurance cards -Picture ID -Medication list -Social security number Prescriptions (Any new or edited meds): Cefpodoxime Proxetil 200 mg PO BID #20 tab metroNIDAZOLE [Metronidazole] 250 mg PO TID #30 tab Complete Home Medications List: Complete Home Medication List: Furosemide [Lasix] 40 mg PO DAILY 09/16/12 Atorvastatin Calcium [Lipitor] 40 mg PO HS #0 tab 06/11/13 Metoprolol Succinate [Toprol Xl] 200 mg PO DAILY #0 tablet.sa 06/11/13 Losartan Potassium 50 mg PO DAILY 01/31/14 Acetaminophen [Tylenol] 1,000 mg PO TID #14 tab 10/17/16 Fenofibrate 134 mg PO DAILY 10/17/16 Pregabalin [Lyrica] 300 mg PO BID 10/17/16 Allopurinol [Zyloprim] 100 mg PO DAILY #30 tab 01/13/18 Albuterol Sulfate [Proair Hfa] 2 puff INHALATION Q4H PRN #1 inhaler 07/19/18 insulin U-100 regular human 100 unit/mL injection solution 90 unit SUBCUT TID ml 01/10/19 amitriptyline 50 mg tablet 50 mg PO DAILY #30 tab 02/16/19 metformin ER 500 mg tablet,extended release 24 hr 500 mg PO BID #120 tab 02/16/19 sacubitril 97 mg-valsartan 103 mg tablet 1 tab PO DAILY #60 tab 02/16/19 semaglutide 0.25 mg or 0.5 mg (2 mg/1.5 mL) subcutaneous pen injector 0.5 mg SUBCUT .WEEKLY #2 ml 02/16/19 spironolactone 25 mg tablet 25 mg PO DAILY #30 tab 02/16/19 Cefpodoxime Proxetil 200 mg PO BID #20 tab 06/15/19 metroNIDAZOLE [Metronidazole] 250 mg PO TID #30 tab 06/15/19
[2019-06-15 14:22] VITALS: BP 112/55
--- NOTE | 2019-06-27 09:21 | HP ---
History of Present Illness: 43-year-old male with a past history of cardiomyopathy, insulin-dependent diabetes, congestive heart failure, GERD,, hypertension, hyperlipidemia, kidney stones, obstructive sleep apnea presents from home with complaints of mouth pain for the past 3 days. Symptoms associated with diarrhea. In the ER he was found to be hypotensive and tachycardic with fever. Renal function was also found to be he was also found to have acute kidney injury with a GFR of 21, creatinine of 3.44 and GFR 35. He was found to have an periodontal abscess on the roof of his mouth. He was started on ceftriaxone and Zosyn in the emergency department. He has been admitted for further evaluation and management of his hypotension and acute kidney injury. Medical History (Updated 06/15/19 @ 10:54 by ) CHF (congestive heart failure) Cardiomyopathy Chronic renal failure Diabetes GERD (gastroesophageal reflux disease) Gout Hyperlipidemia Hypertension Kidney stones Left knee pain Onset Date: Unknown Obstructive sleep apnea Surgical History: Surgical History (Updated 06/14/19 @ 10:22 by Mikki Green MD) History of appendectomy History of repair of ACL Hx of hand surgery Onset Date: 04/17/13 right hand-removal of 2 screws dorsal hand Hx of tonsillectomy history of wrist fusion Family History: Family History (Updated 12/20/18 @ 09:42 by Julieta Yadav RN) Mother Diabetes Social History: (Last Reviewed 06/14/19 @ 03:05 by Terence Coleman RN) Social History: Marital status: lives independently: Yes household members: friend(s) number of children: 5 current occupational status: unemployed Highest education level completed: some college, no degree Service: No Tobacco: Smoking Status: Current every day smoker tobacco type: cigarettes Smoking cigarettes per day: 10.0 Smoking packs per day: 0.5 Alcohol: alcohol intake: current alcohol intake frequency: holiday/special occasion Substance Use: substance use type: does not use Dietary Habits: caffeine: Yes caffeine comment: occasional Type: carbonated beverages Review Of Systems (GEN) - Review of Systems Generalized/Overall Review: Absent: Chills, Fever EENTM: Present: Mouth Pain. Absent: Eye Pain Respiratory: Absent: Shortness of Breath Cardiac: Absent: Chest Pain Abdominal: Absent: Abdominal Pain Misc: All systems neg except as marked Immunizations: IMMUNIZATION HX Immunizations Up to Date Yes History of Influenza Vaccine No Hx Pneumococcal Vaccination No Allergies/Adverse Reactions: Allergies Allergy/AdvReac Type Severity Reaction Status Date / Time No Known Allergies Allergy Verified 06/14/19 03:04 Home Medications: HOME MEDICATIONS Furosemide [Lasix] 40 mg PO DAILY 09/16/12 [Last Taken 06/07/13] Atorvastatin Calcium [Lipitor] 40 mg PO HS #0 tab 06/11/13 [Last Taken Unknown] Metoprolol Succinate [Toprol Xl] 200 mg PO DAILY #0 tablet.sa 06/11/13 [Last Taken Unknown] Losartan Potassium 50 mg PO DAILY 01/31/14 [Last Taken Unknown] Acetaminophen [Tylenol] 1,000 mg PO TID #14 tab 10/17/16 [Last Taken Unknown] Fenofibrate 134 mg PO DAILY 10/17/16 [Last Taken Unknown] Pregabalin [Lyrica] 300 mg PO BID 10/17/16 [Last Taken Unknown] Allopurinol [Zyloprim] 100 mg PO DAILY #30 tab 01/13/18 [Last Taken Unknown] Albuterol Sulfate [Proair Hfa] 2 puff INHALATION Q4H PRN #1 inhaler 07/19/18 [Last Taken Unknown] insulin U-100 regular human 100 unit/mL injection solution 90 unit SUBCUT TID ml 01/10/19 [Last Taken Unknown] amitriptyline 50 mg tablet 50 mg PO DAILY #30 tab 02/16/19 [Last Taken Unknown] metformin ER 500 mg tablet,extended release 24 hr 500 mg PO BID #120 tab 02/16/19 [Last Taken Unknown] sacubitril 97 mg-valsartan 103 mg tablet 1 tab PO DAILY #60 tab 02/16/19 [Last Taken Unknown] semaglutide 0.25 mg or 0.5 mg (2 mg/1.5 mL) subcutaneous pen injector 0.5 mg SUBCUT .WEEKLY #2 ml 02/16/19 [Last Taken 06/05/19] spironolactone 25 mg tablet 25 mg PO DAILY #30 tab 02/16/19 [Last Taken Unknown] Cefpodoxime Proxetil 200 mg PO BID #20 tab 06/15/19 [Last Taken Unknown] metroNIDAZOLE [Metronidazole] 250 mg PO TID #30 tab 06/15/19 [Last Taken Unknown] Exam - Exam Vital Signs: Vital Signs - Last Taken Temp 36.0 C 06/15/19 13:36 Pulse 100 06/15/19 13:36 Resp 20 06/15/19 13:36 BP 112/55 06/15/19 13:36 Pulse Ox 93 06/15/19 13:36 Constitutional: Present: Alert, Cooperative, Well developed, Well nourished, No distress, Obese ENT Exam: Present: hearing grossly normal, other - Large periodontal abscess noted above the front teeth, poor dentition throughout entire oral cavity Eye Exam: bilateral eye: normal inspection Neck: Present: non-tender. Absent: lymphadenopathy (R), lymphadenopathy (L) Back Exam: Present: normal inspection, no CVA tenderness Respiratory: Present: lungs clear, normal breath sounds, no respiratory distress, no accessory muscle use Cardiovascular/Chest: Present: normal peripheral pulses, regular rate, rhythm, no edema Peripheral Pulses: dorsalis-pedis (R): 1+, dorsalis-pedis (L): 1+ Abdomen: Present: Normal bowel sounds, soft, nontender Extremity: Present: no pedal edema Skin Exam: Present: normal color, warm/dry Neurologic: Present: alert, normal mood/affect Appearance: Present: appropriate appearance, appropriate insight Eye contact: Present: cooperative, good eye contact Thoughts: Present: normal thought pattern, normal mood /affect Diagnostic Studies: Laboratory Results WBC 4.3 K/mm3 (4.0-10.5) 06/15/19 05:43 RBC 4.91 M/mm3 (4.7-6.0) 06/15/19 05:43 Hgb 13.1 gm/dL (13.5-18.0) L 06/15/19 05:43 Hct 42.2 % (42.0-52.0) 06/15/19 05:43 MCV 85.9 fl (78-100) 06/15/19 05:43 MCH 26.7 pg (27-31) L 06/15/19 05:43 MCHC 31.0 g/dl (32-36) L 06/15/19 05:43 RDW 15.0 % (11.5-14.0) H 06/15/19 05:43 Plt Count 116 K/mm3 (150-450) L 06/15/19 05:43 MPV 11.1 fl (8-11.3) 06/15/19 05:43 Immature Gran % (Auto) 0.50 % (0.001-0.429) H 06/15/19 05:43 Immature Gran # (Auto) 0.02 K/mm3 (0.000-0.0310) 06/15/19 05:43 48.1 % (42-75.0) 06/15/19 05:43 39.5 % (20-51) 06/15/19 05:43 7.4 % (0.0-9) 06/15/19 05:43 4.0 % (0.0-3.0) H 06/15/19 05:43 0.5 % (0.0-1.0) 06/15/19 05:43 Nucleated RBC % 0.0 k/mm3 (0-1) 06/15/19 05:43 2.1 K/mm3 (1.3-6.0) 06/15/19 05:43 1.70 k/mm3 (1.5-3.5) 06/15/19 05:43 0.3 k/mm3 (0.0-1.0) 06/15/19 05:43 0.2 k/mm3 (0.0-0.7) 06/15/19 05:43 Absolute Basophils 0.0 k/mm3 (0.0-0.1) 06/15/19 05:43 Sodium 139 mmol/L (132-142) 06/15/19 05:43 140 mmol/L (130-142) 06/15/19 05:43 Potassium 4.0 mmol/L (3.4-4.6) 06/15/19 05:43 Chloride 104 mmol/L (97-106) 06/15/19 05:43 Carbon Dioxide 28.2 mmol/L (24-32.6) 06/15/19 05:43 10.8 mmol/L (6.8-13.8) 06/15/19 05:43 BUN 25 mg/dL (6-23) H 06/15/19 05:43 1.22 mg/dL (0.4-1.4) 06/15/19 05:43 Est GFR (Non-Af Amer) 69 mL/min (60-130) D 06/15/19 05:43 20.5 (9.0-21.6) 06/15/19 05:43 168 mg/dL (70-110) H 06/15/19 05:43 1.0 mmol/L (0.4-2.0) 06/13/19 22:22 Calcium 8.8 mg/dL (7.9-10.9) 06/15/19 05:43 Calcium Adj for Albumin 9.4 mg/dL (8.4-10.2) 06/15/19 05:43 0.3 mg/dL (0.0-1.1) 06/15/19 05:43 AST 27 U/L (0-48) 06/15/19 05:43 ALT 24 U/L (19-67) 06/15/19 05:43 40 U/L (50-170) L 06/15/19 05:43 6.7 gm/dL (6.2-8.2) 06/15/19 05:43 2.8 gm/dl (3.4-5.0) L 06/15/19 05:43 106 U/L (73-393) 06/13/19 18:18 Dark yellow 06/14/19 03:13 Slightly cloudy (CLEAR) 06/14/19 03:13 5.5 pH (5.0-7.0) 06/14/19 03:13 Ur Specific [place] 1.025 SP.GR. (1.005-1.030) 06/14/19 03:13 15 mg/dL (NEGATIVE) H 06/14/19 03:13 Negative mg/dL (NEGATIVE) 06/14/19 03:13 Negative mg/dL (NEGATIVE) 06/14/19 03:13 Negative /ul (NEGATIVE) 06/14/19 03:13 Negative (NEGATIVE) 06/14/19 03:13 1 mg/dl (NEGATIVE) H 06/14/19 03:13 Negative (NEGATIVE) 06/14/19 03:13 Prot Sulfosalicylic Acd Negative mg/dL (0) 06/14/19 03:13 Normal EU/dl (NORMAL) 06/14/19 03:13 Ur Leukocyte Esterase Negative /ul (NEGATIVE) 06/14/19 03:13 None seen /hpf (0-5) 06/14/19 03:13 0-5 /hpf (0-5) 06/14/19 03:13 Ur Epithelial Cells 0-5 /hpf (0-5) 06/14/19 03:13 Uric Acid Crystals Few - 1+ /hpf (NONE) H 06/14/19 03:13 Trace (NONE) 06/14/19 03:13 Hyaline Casts 0-5 /LPF (NONE) H 06/14/19 03:13 No culture indicated 06/14/19 03:13 Assessment/Plan - Assessment/Plan (1) Acute renal insufficiency Problem: Resolved (2) Acute periodontal abscess Problem: Acute (3) Dehydration Problem: Resolved (4) Gout Problem: Chronic (5) HTN (hypertension) Problem: Chronic Qualifiers: Hypertension type: essential hypertension Qualified Code(s): I10 - Essential (primary) hypertension (6) Diabetes mellitus, insulin dependent (IDDM), controlled Problem: Chronic
== END 2019-06-15 14:05 | disposition home or self-care (01) ==
LOC: MS 17:53 → ER 17:53 → MS 06-14 02:50
PROVIDERS: ADMIT Internal Medicine; ATTEND Internal Medicine
CPT/HCPCS: 36415; 70486; 80053; 81001; 83605; 83690; 85025; 87040; 87081; 96365; 96366; 96367; 96372; 96375; 99285; G0378

== ENCOUNTER 2020-03-18 13:01 | Inpatient (IN) ==
[2020-03-18] MEDS ORDERED: ONDANSETRON HCL/PF 2 MG/ML VIAL IV ONE (13:42)
[2020-03-18] MEDS ORDERED: KETOROLAC TROMETHAMINE 30 MG/ML VIAL IV ONE (13:42)
[2020-03-18] MEDS ORDERED: NORMAL SALINE 1,000 ML IV ONE (13:42)
[2020-03-18 13:51] LABS: Urine Bilirubin Negative (NEGATIVE); Urine Blood Negative /ul (NEGATIVE); Urine Ketone Negative (NEGATIVE); Urine Nitrite Negative (NEGATIVE); Urine Protein Negative (NEGATIVE); Urine Urobilinogen Normal (NORMAL); Urine pH 5.5 pH (5.0-7.0)
[2020-03-18 14:00] LABS: Urine Appearance Slightly Cloudy (CLEAR); Urine Bacteria 1+; Urine Color Yellow; Urine RBC 0-5 /hpf (0-5)
[2020-03-18 14:26] LABS: Hematocrit 41.7 % (42.0-52.0); Hemoglobin 13.3 gm/dL (13.5-18.0); Mean Cell Volume 85.3 fl (78-100); Mean Corpuscular Hemoglobin 27.2 pg (27-31); Mean Corpuscular Hgb Conc 31.9 g/dl (32-36); Mean Platelet Volume 10.7 fl (8-11.3); Neutrophil # 5.4 K/mm3 (1.3-6.0); Neutrophil % 68.6 % (42-75.0); Platelet Count 170 K/mm3 (150-450); Red Blood Count 4.89 M/mm3 (4.7-6.0); Red Cell Distribution Width 15.5 % (11.5-14.0); White Blood Count 7.8 K/mm3 (4.0-10.5)
[2020-03-18 14:51] LABS: ALT 26 U/L (19-67); AST 31 U/L (0-48); Albumin * 2.6 gm/dl (3.4-5.0); Alkaline Phosphatase * 55 U/L (50-170); Anion Gap 12.9 mmol/L (6.8-13.8); BUN/Creatinine Ratio 23.6 (9.0-21.6); Bilirubin, Total 0.5 mg/dL (0.0-1.1); Blood Urea Nitrogen 63 mg/dL (6-23); Ca. Corrected For Albumin 9.5 mg/dL (8.4-10.2); Calcium * 8.7 mg/dL (7.9-10.9); Carbon Dioxide 24.3 mmol/L (24-32.6); Chloride 104 mmol/L (97-106); Glucose * 83 mg/dL (70-110); Potassium 5.2 mmol/L (3.4-4.6); Sodium 136 mmol/L (132-142); Total Protein 7.2 gm/dL (6.2-8.2)
[2020-03-18] MEDS ORDERED: LIDOCAINE HCL/EPINEPHRINE 30 ML VIAL IJ ONE (16:09)
[2020-03-18] MEDS: VANCOMYCIN/WATER FOR INJ (PEG) 1 GM/200 ML BAG IV ONE ×2 (16:40→16:46)
--- NOTE | 2020-03-18 16:48 | ERNOTE ---
Integumentary HPI - Narrative Date of Service: 03/18/20 - General Presenting Symptoms: abscess Time Seen by Provider: 03/18/20 13:26 Source: patient, RN notes reviewed, old records Exam Limitations: no limitations - Immun/Allergies/Home Medications Immunizations: IMMUNIZATION HX Immunizations Up to Date Yes History of Influenza Vaccine No Hx Pneumococcal Vaccination No Allergies/Adverse Reactions: Allergies Allergy/AdvReac Type Severity Reaction Status Date / Time No Known Allergies Allergy Verified 03/18/20 13:23 Home Medications: HOME MEDICATIONS Furosemide [Lasix] 40 mg PO DAILY 09/16/12 [Last Taken 06/29/19] Metoprolol Succinate [Toprol Xl] 200 mg PO DAILY #0 tablet.sa 06/11/13 [Last Taken 06/29/19] amitriptyline 50 mg tablet 50 mg PO DAILY #30 tab 02/16/19 [Last Taken 06/29/19] metformin 500 mg tablet,extended release 24 hr 500 mg PO BID #120 tab 02/16/19 [Last Taken 06/29/19] semaglutide 0.5 mg SUBCUT .WEEKLY #2 ml 02/16/19 [Last Taken 06/26/19] spironolactone 25 mg tablet 25 mg PO DAILY #30 tab 02/16/19 [Last Taken 06/29/19] Atorvastatin Calcium [Lipitor] 80 mg PO HS 06/30/19 [Last Taken 06/29/19] Fenofibrate 160 mg PO DAILY 06/30/19 [Last Taken 06/29/19] Sacubitril/Valsartan [Entresto 97 mg-103 mg Tablet] 1 ea PO DAILY 06/30/19 [Last Taken 06/29/19] Allopurinol [Zyloprim (Allopurinol)] 100 mg PO DAILY 03/18/20 [Last Taken Unknown] Insulin Regular, Human [Humulin R] 35 unit SQ HS 03/18/20 [Last Taken Unknown] Insulin Regular, Human [Humulin R] 90 unit SQ BID 03/18/20 [Last Taken Unknown] Insulin Regular, Human [Humulin R] 95 unit SQ .AM 03/18/20 [Last Taken Unknown] Pregabalin [Lyrica] 200 mg PO TID 03/18/20 [Last Taken Unknown] - History of Present Illness Narrative: Benedicto is a 44-year-old male who presents to the emergency department for an abscess on his abdomen. He first noticed this 2 days ago. The lesion is draining and has surrounding redness. He began feeling ill today. He reports chills and nausea. He reports having a similar lesion on his right calf a few days ago that he drained. This resolved on its own. He does have a history of MRSA. He is diabetic and reports that his blood glucose was 114 this morning. Location: Reports: torso Quality: Reports: painful Severity: severe Exposure: Reports: no cause identified Modifying Factors - (Improves): Reports: nothing Modifying Factors - (Worsens): Reports: nothing Associated Symptoms: Reports: swelling/mass/lumps, malaise. Denies: rash Prior Treatment: Denies: recently seen Review of Systems - Review of Systems Constitutional: Present: chills, fatigue, malaise. Absent: recent illness EYE: Present: no symptoms reported ENT: Present: no symptoms reported Respiratory: Absent: shortness of breath, cough Cardiology: Absent: chest pain, syncope Gastrointestinal/Abdominal: Present: nausea. Absent: vomiting, diarrhea Genitourinary: Absent: decreased urinary output Musculoskeletal: Absent: muscle pain, joint pain Skin: Present: lesions, lumps, change in color. Absent: rash Neurological: Absent: headache, weakness Endocrine: Present: no symptoms reported Hematologic/Lymphatic: Absent: easy bruising, easy bleeding Psych: Present: no symptoms reported Medical History (Last Reviewed 03/18/20 @ 16:42 by Hanny Singer NP) CHF (congestive heart failure) Cardiomyopathy Chronic renal failure Diabetes GERD (gastroesophageal reflux disease) Gout Hyperlipidemia Hypertension Kidney stones Left knee pain Onset Date: Unknown Obstructive sleep apnea Surgical History: Surgical History (Last Reviewed 03/18/20 @ 16:42 by Hanny Singer NP) S/P left knee arthroscopy Onset Date: 06/30/19 partial lateral meniscectomy, debridement ACL, removal loose bodies, excision anterior plica History of appendectomy History of repair of ACL Hx of hand surgery Onset Date: 04/17/13 right hand-removal of 2 screws dorsal hand Hx of tonsillectomy history of wrist fusion Family History: Family History (Last Reviewed 03/18/20 @ 16:42 by Hanyn Singer NP) Mother Diabetes Social History: (Last Reviewed 03/18/20 @ 16:42 by Hanny Singer NP) Social History: Marital status: lives independently: Yes household members: friend(s) number of children: 5 current occupational status: unemployed Highest education level completed: some college, no degree Service: No Tobacco: Smoking Status: Current every day smoker tobacco type: cigarettes Smoking cigarettes per day: 10.0 Smoking packs per day: 0.5 Alcohol: alcohol intake: current alcohol intake frequency: holiday/special occasion Substance Use: substance use type: does not use Dietary Habits: caffeine: Yes caffeine comment: occasional Type: carbonated beverages Physical Exam - Physical Exam General Appearance: Present: alert, mild distress, obese Head Exam: Present: normal inspection Eye Exam: Normal inspection: bilateral Respiratory: Present: no respiratory distress, normal breath sounds, no accessory muscle use, lungs clear Cardiovascular/Chest: Present: tachycardia, systolic murmur Gastrointestinal/Abdominal: Present: tenderness - surrounding abscess, distended - obese Neurological Exam: Present: alert, oriented, normal mood/affect, no motor/sensory deficits Skin Exam: Present: normal color, warm/dry, other - abscess located above umbillicus with purulent drainage and extensive surrounding erythema and induration Progress - Results and Orders Patient's Lab Results:: I have reviewed the patient's lab results. - Vital Signs Patient's Vital Signs:: I have reviewed the patient's vital signs. Vital Signs: Vital Signs 03/18/20 13:21 03/18/20 15:21 Temperature 37.3 C Pulse Rate 100 88 Respiratory Rate 20 18 Blood Pressure 99/54 152/88 H O2 Sat by Pulse Oximetry 95 94 - CT/Ultrasound CT/Ultrasound Narrative: Noncontrast CT abdomen/pelvis: IMPRESSION: 1. DIFFUSE CELLULITIS OF THE ANTERIOR ABDOMINAL WALL BOTH ABOVE AND BELOW THE UMBILICUS. THERE IS ALSO INFLAMMATORY CHANGE INVOLVING THE UMBILICUS. THERE IS N O FOCAL FLUID COLLECTIONS IDENTIFIED TO SUGGEST ABSCESS FORMATION. ADDITIONALLY ALL OF THE CELLULITIS IS IN THE SUBCUTANEOUS FAT OUTSIDE OF THE ABDOMINAL CAVITY. NO NEPHROLITHIASIS OR HYDRONEPHROSIS. 2. REMAINDER OF EXAM IS SUBOPTIMAL WITHOUT CONTRAST. 3. ADDITIONAL COMMENTS ABOVE. Electronically signed by Mao Jenkins D.O.. - Progress/Reassessment Chief Complaint: Cellulitis Progress:: Unchanged Procedures Abdomen Anesthesia: Lidocaine w/ Epi, Local I & D Prep: betadine prep, sterile drapes applied, sterile dressing applied Blade Size: 15 Findings and Actions: purulent drainage moderate, cultures obtained Complications: Pt dung procedure well Plan - Plan Plan: The patient initially was hypotensive and tachycardic but this is improved with IV fluids. His white count, lactic acid and CRP are normal despite having a large abscess and extensive surrounding cellulitis on his abdomen. A CT scan was done that showed no extension into the abdominal wall. The lesion was already draining on its own but an incision was made and additional drainage was expressed. The patient is also in acute renal failure with a creatinine of 2.67 and a GFR of only 28. His nasal cultures were positive for MRSA during his last hospitalization. Dr. Lizarraga was contacted and the patient will be admitted to observation status. Vancomycin has been ordered in the ED. Cultures of the abscess, blood and urine are pending. Departure Clinical Impression: Cellulitis and abscess of trunk Acute renal failure Qualifiers: Acute renal failure type: unspecified Qualified Code(s): N17.9 - Acute kidney failure, unspecified - Departure Disposition: Still a patient Condition: Serious Referrals: Yael Murdock MD [Primary Care Provider] -
[2020-03-18] MEDS ORDERED: VANCOMYCIN/WATER FOR INJ (PEG) 2 GM/400 ML BAG IV ONE (17:00)
[2020-03-19] MEDS: NORMAL SALINE 1,000 ML IV PRN ×3 (05:14→17:44)
[2020-03-19] MEDS: PIPERACILLIN SODIUM/TAZOBACTAM 3.375 GM in DEXTROSE 5 % IN WATER 100 ML IV SCH ×6 (06:09→21:14)
[2020-03-19 06:32] LABS: Hematocrit 41.6 % (42.0-52.0); Mean Cell Volume 87.4 fl (78-100); Mean Corpuscular Hemoglobin 27.3 pg (27-31); Mean Corpuscular Hgb Conc 31.3 g/dl (32-36); Mean Platelet Volume 10.3 fl (8-11.3); Neutrophil # 3.5 K/mm3 (1.3-6.0); Neutrophil % 57.3 % (42-75.0); Platelet Count 148 K/mm3 (150-450); Red Blood Count 4.76 M/mm3 (4.7-6.0); Red Cell Distribution Width 15.8 % (11.5-14.0); White Blood Count 6.2 K/mm3 (4.0-10.5)
[2020-03-19 06:47] LABS: Anion Gap 14.3 mmol/L (6.8-13.8); BUN/Creatinine Ratio 23.4 (9.0-21.6); Calcium * 8.9 mg/dL (7.9-10.9); Carbon Dioxide 25.9 mmol/L (24-32.6); Estimated Creat Clear 22.8; Potassium 5.2 mmol/L (3.4-4.6)
--- NOTE | 2020-03-19 08:03 | HP ---
Chief Complaint - Chief Complaint Date of Service: 03/18/20 Time of Service: 18:45 Chief Complaint: cellulitis, PRIMO History of Present Illness: 44-year-old with poorly controlled diabetes, poorly controlled blood pressure presented to the hospital with 1 week worsening abdominal pain/redness/drainage. Patient found to have an abdominal wall abscess under CT which was opened and drained last night. Patient was started on vancomycin and Zosyn for saline infection. Patient kidney function is normally stage III but yesterday he was found to have an acute kidney injury on top of his chronic kidney disease. Patient was given a bolus liter fluid normal saline as well as started on normal saline at 125 an hour following that. Repeat BMP today showed kidney function deteriorating. Patient otherwise had fairly unremarkable lab work, with normal white count and normal lactic acid. Wound culture was abdomen is growing staph species. He is also MRSA positive in his nares. Patient vital signs of been stable though his blood pressures at times have been soft. Patient was admitted to the floor under inpatient due to abdominal wall abscess with corresponding cellulitis as well as acute kidney injury top of his chronic kidney disease. Patient has history of CHF, hypertension, hyperlipidemia. Medical History (Last Reviewed 03/18/20 @ 17:08 by Mitzy Riggs RN) CHF (congestive heart failure) Cardiomyopathy Chronic renal failure Diabetes GERD (gastroesophageal reflux disease) Gout Hyperlipidemia Hypertension Kidney stones Left knee pain Onset Date: Unknown Obstructive sleep apnea Surgical History: Surgical History (Last Reviewed 03/18/20 @ 17:08 by Mitzy Riggs RN) S/P left knee arthroscopy Onset Date: 06/30/19 partial lateral meniscectomy, debridement ACL, removal loose bodies, excision anterior plica History of appendectomy History of repair of ACL Hx of hand surgery Onset Date: 04/17/13 right hand-removal of 2 screws dorsal hand Hx of tonsillectomy history of wrist fusion Family History: Family History (Last Reviewed 03/18/20 @ 17:08 by Mitzy Riggs RN) Mother Diabetes Social History: (Last Reviewed 03/18/20 @ 17:08 by Mitzy Riggs RN) Social History: Marital status: lives independently: Yes household members: friend(s) number of children: 5 current occupational status: unemployed Highest education level completed: some college, no degree Service: No Tobacco: Smoking Status: Current every day smoker tobacco type: cigarettes Smoking cigarettes per day: 10.0 Smoking packs per day: 0.5 Alcohol: alcohol intake: current alcohol intake frequency: holiday/special occasion Substance Use: substance use type: does not use Dietary Habits: caffeine: Yes caffeine comment: occasional Type: carbonated beverages Review Of Systems (GEN) - Review of Systems Generalized/Overall Review: Present: Weakness. Absent: Chills, Fever EENTM: Present: No Symptoms Reported. Absent: Mouth Pain Respiratory: Absent: Cough Cardiac: Present: No Symptoms Reported Abdominal: Absent: Nausea, Vomiting, Abdominal Pain Genitourinary: Absent: Burning, Itching, Urgency, Frequency Musculoskeletal: Present: Joint Pain - Left knee pain, Other - Abdominal wall tenderness with palpation Neurological: Present: No Symptoms Reported Skin: Present: Rash - Abdominal wall cellulitis above the blood umbilicus with drainage/packing over abscess in the left lower quadrant Immunizations: IMMUNIZATION HX Immunizations Up to Date Yes History of Influenza Vaccine No Hx Pneumococcal Vaccination No Allergies/Adverse Reactions: Allergies Allergy/AdvReac Type Severity Reaction Status Date / Time No Known Allergies Allergy Verified 03/18/20 17:08 Home Medications: HOME MEDICATIONS Furosemide [Lasix] 40 mg PO DAILY 09/16/12 [Last Taken 06/29/19] Metoprolol Succinate [Toprol Xl] 200 mg PO DAILY #0 tablet.sa 06/11/13 [Last Taken 06/29/19] amitriptyline 50 mg tablet 50 mg PO DAILY #30 tab 02/16/19 [Last Taken 06/29/19] metformin 500 mg tablet,extended release 24 hr 500 mg PO BID #120 tab 02/16/19 [Last Taken 06/29/19] semaglutide 0.5 mg SUBCUT .WEEKLY #2 ml 02/16/19 [Last Taken 03/11/20] spironolactone 25 mg tablet 25 mg PO DAILY #30 tab 02/16/19 [Last Taken 06/29/19] Atorvastatin Calcium [Lipitor] 80 mg PO HS 06/30/19 [Last Taken 06/29/19] Fenofibrate 160 mg PO DAILY 06/30/19 [Last Taken 06/29/19] Sacubitril/Valsartan [Entresto 97 mg-103 mg Tablet] 1 ea PO DAILY 06/30/19 [Last Taken 06/29/19] Allopurinol [Zyloprim (Allopurinol)] 100 mg PO DAILY 03/18/20 [Last Taken Unknown] Insulin Regular, Human [Humulin R] 35 unit SQ HS 03/18/20 [Last Taken Unknown] Insulin Regular, Human [Humulin R] 90 unit SQ 1200,1700 03/18/20 [Last Taken Unknown] Insulin Regular, Human [Humulin R] 95 unit SQ .AM 03/18/20 [Last Taken Unknown] Pregabalin [Lyrica] 200 mg PO TID 03/18/20 [Last Taken Unknown] Exam - Exam Vital Signs: Vital Signs - Last Taken Temp 36.5 C 03/19/20 06:12 Pulse 84 03/19/20 06:12 Resp 16 03/19/20 06:12 BP 92/63 03/19/20 07:52 Pulse Ox 92 L 03/19/20 06:12 Constitutional: Present: Alert, Oriented x3, Mild distress, Morbidly obese ENT Exam: Present: hearing grossly normal. Absent: nasal congestion, nasal drainage Eye Exam: bilateral eye: normal inspection, EOMI Back Exam: Present: no CVA tenderness Respiratory: Present: lungs clear, normal breath sounds Cardiovascular/Chest: Present: regular rate, rhythm, no murmur - Distant heart sounds Abdomen: Present: tender - Around the umbilicus with corresponding cellulitis, cellulitis outlined by ER provider yesterday. Dressing over abscess is clean and dry Skin Exam: Present: skin rash - 12 inch diameter cellulitic infection above and below umbilicus, outlined by marker. Neurologic: Present: other - Slightly flat affect today Appearance: Present: appropriate insight, disheveled Eye contact: Present: cooperative, good eye contact Thoughts: Present: normal thought pattern, normal mood /affect Diagnostic Studies: Abnormal Lab Results 03/18/20 03/18/20 03/18/20 Range/Units 13:41 14:10 14:10 Hgb 13.3 L (13.5-18.0) gm/dL Hct 41.7 L (42.0-52.0) % MCHC 31.9 L (32-36) g/dl RDW 15.5 H (11.5-14.0) % Plt Count (150-450) K/mm3 Immature Gran % (Auto) 0.50 H (0.001-0.429) % Immature Gran # (Auto) 0.04 H (0.000-0.0310) K/mm3 Eosinophils % (0.0-3.0) % Potassium 5.2 H D (3.4-4.6) mmol/L Anion Gap (6.8-13.8) mmol/L BUN 63 H D (6-23) mg/dL Creatinine 2.67 H D (0.4-1.4) mg/dL Est GFR (Non-Af Amer) 28 L D (60-130) mL/min BUN/Creatinine Ratio 23.6 H (9.0-21.6) Random Glucose (70-110) mg/dL Albumin 2.6 L (3.4-5.0) gm/dl Ur Leukocyte Esterase 25 H (NEGATIVE) /ul Urine WBC 5-10 H (0-5) /hpf Ur Epithelial Cells 5-10 H (0-5) /hpf Urine Bacteria 1+ H (NONE) 03/19/20 03/19/20 Range/Units 06:28 06:28 Hgb 13.0 L (13.5-18.0) gm/dL Hct 41.6 L (42.0-52.0) % MCHC 31.3 L (32-36) g/dl RDW 15.8 H (11.5-14.0) % Plt Count 148 L (150-450) K/mm3 Immature Gran % (Auto) 0.60 H (0.001-0.429) % Immature Gran # (Auto) 0.04 H (0.000-0.0310) K/mm3 Eosinophils % 4.0 H (0.0-3.0) % Potassium 5.2 H (3.4-4.6) mmol/L Anion Gap 14.3 H (6.8-13.8) mmol/L BUN 78 H (6-23) mg/dL Creatinine 3.33 H D (0.4-1.4) mg/dL Est GFR (Non-Af Amer) 22 L D (60-130) mL/min BUN/Creatinine Ratio 23.4 H (9.0-21.6) Random Glucose 172 H D (70-110) mg/dL Albumin (3.4-5.0) gm/dl Ur Leukocyte Esterase (NEGATIVE) /ul Urine WBC (0-5) /hpf Ur Epithelial Cells (0-5) /hpf Urine Bacteria (NONE) Microbiology 03/18/20 13:50 Abscess Culture - Preliminary Abdomen Staphylococcus Species 03/18/20 13:53 Urine Culture - Preliminary Urine,Clean Catch No Pathogens Isolated 03/18/20 17:38 - Final Nares MRSA Positive Laboratory Results WBC 6.2 K/mm3 (4.0-10.5) D 03/19/20 06:28 RBC 4.76 M/mm3 (4.7-6.0) 03/19/20 06:28 Hgb 13.0 gm/dL (13.5-18.0) L 03/19/20 06:28 Hct 41.6 % (42.0-52.0) L 03/19/20 06:28 MCV 87.4 fl (78-100) 03/19/20 06:28 MCH 27.3 pg (27-31) 03/19/20 06:28 MCHC 31.3 g/dl (32-36) L 03/19/20 06:28 RDW 15.8 % (11.5-14.0) H 03/19/20 06:28 Plt Count 148 K/mm3 (150-450) L 03/19/20 06:28 MPV 10.3 fl (8-11.3) 03/19/20 06:28 Immature Gran % (Auto) 0.60 % (0.001-0.429) H 03/19/20 06:28 Immature Gran # (Auto) 0.04 K/mm3 (0.000-0.0310) H 03/19/20 06:28 Neutrophils % 57.3 % (42-75.0) 03/19/20 06:28 Lymphocytes % 29.1 % (20-51) 03/19/20 06:28 Monocytes % 8.7 % (0.0-9) 03/19/20 06:28 Eosinophils % 4.0 % (0.0-3.0) H 03/19/20 06:28 Basophils % 0.3 % (0.0-1.0) 03/19/20 06:28 Nucleated RBC % 0.0 k/mm3 (0-1) 03/19/20 06:28 Neutrophils # 3.5 K/mm3 (1.3-6.0) 03/19/20 06:28 Lymphocytes # 1.80 k/mm3 (1.5-3.5) 03/19/20 06:28 Monocytes # 0.5 k/mm3 (0.0-1.0) 03/19/20 06:28 Eosinophils # 0.3 k/mm3 (0.0-0.7) 03/19/20 06:28 Absolute Basophils 0.0 k/mm3 (0.0-0.1) 03/19/20 06:28 Sodium 136 mmol/L (132-142) 03/19/20 06:28 Plasma Sodium 137 mmol/L (130-142) 03/19/20 06:28 Potassium 5.2 mmol/L (3.4-4.6) H 03/19/20 06:28 Chloride 101 mmol/L (97-106) 03/19/20 06:28 Carbon Dioxide 25.9 mmol/L (24-32.6) 03/19/20 06:28 Anion Gap 14.3 mmol/L (6.8-13.8) H 03/19/20 06:28 BUN 78 mg/dL (6-23) H 03/19/20 06:28 Creatinine 3.33 mg/dL (0.4-1.4) H D 03/19/20 06:28 Est GFR (Non-Af Amer) 22 mL/min (60-130) L D 03/19/20 06:28 BUN/Creatinine Ratio 23.4 (9.0-21.6) H 03/19/20 06:28 Random Glucose 172 mg/dL (70-110) H D 03/19/20 06:28 Lactic Acid, Venous 0.8 mmol/L (0.4-2.0) 03/18/20 14:10 Calcium 8.9 mg/dL (7.9-10.9) 03/19/20 06:28 Calcium Adj for Albumin 9.5 mg/dL (8.4-10.2) 03/18/20 14:10 Total Bilirubin 0.5 mg/dL (0.0-1.1) 03/18/20 14:10 AST 31 U/L (0-48) 03/18/20 14:10 ALT 26 U/L (19-67) 03/18/20 14:10 Alkaline Phosphatase 55 U/L (50-170) 03/18/20 14:10 C-Reactive Prot, Quant Less than 0.2 mg/dL (0.0-0.9) 03/18/20 14:10 Total Protein 7.2 gm/dL (6.2-8.2) 03/18/20 14:10 Albumin 2.6 gm/dl (3.4-5.0) L 03/18/20 14:10 Urine Color Yellow 03/18/20 13:41 Urine Appearance Slightly cloudy (CLEAR) 03/18/20 13:41 Urine pH 5.5 pH (5.0-7.0) 03/18/20 13:41 Ur Specific [place] 1.020 SP.GR. (1.005-1.030) 03/18/20 13:41 Urine Protein Negative mg/dL (NEGATIVE) 03/18/20 13:41 Urine Glucose (UA) Negative mg/dL (NEGATIVE) 03/18/20 13:41 Urine Ketones Negative mg/dL (NEGATIVE) 03/18/20 13:41 Urine Blood Negative /ul (NEGATIVE) 03/18/20 13:41 Urine Nitrate Negative (NEGATIVE) 03/18/20 13:41 Urine Bilirubin Negative mg/dl (NEGATIVE) 03/18/20 13:41 Urine Urobilinogen Normal EU/dl (NORMAL) 03/18/20 13:41 Ur Leukocyte Esterase 25 /ul (NEGATIVE) H 03/18/20 13:41 Urine RBC 0-5 /hpf (0-5) 03/18/20 13:41 Urine WBC 5-10 /hpf (0-5) H 03/18/20 13:41 Ur Epithelial Cells 5-10 /hpf (0-5) H 03/18/20 13:41 Urine Bacteria 1+ (NONE) H 03/18/20 13:41 Urine Culture Comments Culture to follow 03/18/20 13:41 Assessment/Plan - Narrative Narrative: 44-year-old male with morbid obesity, presented to the hospital with 1 week of worsening abdominal pain/infection/drainage. Abscess was opened up by practitioner in the ER prior to admission and packed. Cellulitic infection was outlined. Patient started on vancomycin and Zosyn. Concerns for using both these antibiotics due to kidney function but limited options available. Initial skin culture growing out staph species. Patient positive for MRSA in his nares. A.m. lab work really unremarkable aside from his kidney function and mild hyperkalemia at 5.2. Will repeat BMP later this afternoon to determine whether or not his kidney function improved with 500 cc bolus as well as ongoing fluid resuscitation. We will monitor fluid status closely. If kidney function does not improve then will need to transfer to [facility] or facility with higher level of care that can provide nephrology if needed. Patient blood pressures have been soft since admission but he is maintaining a map of 65 for the most part. Hopefully bolus and ongoing fluids will help improve his blood pressures but will continue to monitor closely. Restarted his chronic medications including his insulin for insulin-dependent diabetes. Will monitor sugars ACHS. Consistent carbohydrate diet ordered SCDs to be worn while patient is in bed for DVT prophylaxis Nurse to call questions or concerns. - Assessment/Plan (1) Cellulitis and abscess of trunk Problem: Acute (2) Acute renal failure Problem: Acute Qualifiers: Acute renal failure type: unspecified Qualified Code(s): N17.9 - Acute kidney failure, unspecified (3) Hypotension Problem: Acute Qualifiers: Hypotension type: other hypotension type Qualified Code(s): I95.89 - Other hypotension (4) Diabetes mellitus, insulin dependent (IDDM), controlled Problem: Chronic (5) Renal insufficiency Problem: Acute
[2020-03-19] MEDS ORDERED: VALSARTAN PO SCH (09:00)
[2020-03-19] MEDS ORDERED: SACUBITRIL PO SCH (09:00)
[2020-03-19] MEDS ORDERED: INSULIN REGULAR, HUMAN 100 UNITS/ML VIAL SC SCH (09:00)
[2020-03-19] MEDS: ALLOPURINOL 100 MG TABLET PO SCH (09:56)
[2020-03-19] MEDS: AMITRIPTYLINE HCL 50 MG TABLET PO SCH (09:56)
[2020-03-19] MEDS: FENOFIBRATE,MICRONIZED 134 MG CAPSULE PO SCH (09:56)
[2020-03-19] MEDS: SPIRONOLACTONE 25 MG TABLET PO SCH (10:03)
[2020-03-19] MEDS: METOPROLOL SUCCINATE 100 MG TABLET.SA PO SCH (10:03)
[2020-03-19] MEDS ORDERED: METOPROLOL SUCCINATE 100 MG TABLET.SA PO ONE (10:04)
[2020-03-19] MEDS: FUROSEMIDE 40 MG TABLET PO SCH (10:14)
[2020-03-19] MEDS: PREGABALIN 50 MG CAPSULE PO SCH ×3 (10:36→17:17)
[2020-03-19] MEDS: INSULIN REGULAR, HUMAN 100 UNITS/ML VIAL SC SCH ×3 (12:13→21:14)
[2020-03-19] MEDS ORDERED: LIDOCAINE HCL 20 ML VIAL ONE (13:40)
[2020-03-19 14:03] LABS: Calcium * 8.9 mg/dL (7.9-10.9); Carbon Dioxide 23.5 mmol/L (24-32.6); Estimated Creat Clear 24.6; Potassium 5.5 mmol/L (3.4-4.6)
--- NOTE | 2020-03-19 14:56 | ANES ---
Anesthesia Procedure Note Procedure Note: ANESTHESIA PROCEDURE NOTE Date of Procedure: 03/19/2020. Time of procedure: 1410. Performed by: Adriel Arriaga CRNA Bee Producer: None. Preprocedure diagnosis: Difficult IV access. Post procedure diagnosis: Same. Procedure: Ultrasound-guided peripheral vein IV insertion. Indications: There is a 44-year-old male with difficult IV access where hospital staff has been unable to establish a new IV. Findings: See below. Details of the procedure: Skin over the intended target site was cleansed with alcohol. Under ultrasound guidance a 20-gauge IV catheter was inserted into a right arm cephalic vein. A sterile dressing was applied over the insertion site. The line was then flushed with sterile saline solution. EBL: Minimal. Fluids: N/A. Specimen: N/A. Post procedure condition: The patient tolerated the procedure well. No complications were noted. Thank you for this consultation. Adriel Arriaga CRNA
[2020-03-19] MEDS: VANCOMYCIN/WATER FOR INJ (PEG) 2 GM/400 ML BAG IV SCH (16:08)
[2020-03-19] MEDS: ROSUVASTATIN CALCIUM 20 MG TABLET PO SCH (21:13)
--- NOTE | 2020-03-19 22:12 | PN ---
Progess Note - Interim Date: 03/19/20 Time: 22:08 Narrative: 03/19/20 22:08 Patient seen earlier today, BMP nightly with improved kidney function. Patient states he feels fine but still having soft blood pressures. IV fluids running currently 125 mL's per hour. Patient currently tolerating p.o. well without nausea or vomiting. Currently on Vanc and Zosyn for antibiotic coverage. Vancomycin trough pending. Anesthesia consulted for IV placement later this afternoon due to difficulty with maintaining IV access. We will continue to monitor patient and his kidney function. If he does not located fairly dramatic improvement tomorrow morning with repeat labs then we will transfer to [facility] for nephrology coverage. Patient in agreement with treatment plan and is stable at this time. Nurse will call questions or concerns. No changes to current treatment plan outlined in H& P from earlier today.
[2020-03-20] MEDS: NORMAL SALINE 1,000 ML IV PRN ×3 (01:28→18:57)
[2020-03-20] MEDS: PIPERACILLIN SODIUM/TAZOBACTAM 3.375 GM in DEXTROSE 5 % IN WATER 100 ML IV SCH ×4 (04:58→13:45)
[2020-03-20] MEDS: INSULIN REGULAR, HUMAN 100 UNITS/ML VIAL SC SCH ×4 (07:44→21:15)
[2020-03-20] MEDS: SPIRONOLACTONE 25 MG TABLET PO SCH (10:22)
[2020-03-20] MEDS: FENOFIBRATE,MICRONIZED 134 MG CAPSULE PO SCH (10:22)
[2020-03-20] MEDS: AMITRIPTYLINE HCL 50 MG TABLET PO SCH (10:22)
[2020-03-20] MEDS: ALLOPURINOL 100 MG TABLET PO SCH (10:22)
[2020-03-20] MEDS: METOPROLOL SUCCINATE 100 MG TABLET.SA PO SCH (10:23)
[2020-03-20] MEDS: FUROSEMIDE 40 MG TABLET PO SCH (10:23)
[2020-03-20] MEDS: PREGABALIN 50 MG CAPSULE PO SCH ×3 (10:26→17:12)
[2020-03-20 10:59] LABS: Anion Gap 11.9 mmol/L (6.8-13.8); BUN/Creatinine Ratio 27.4 (9.0-21.6); Calcium * 9.2 mg/dL (7.9-10.9); Estimated Creat Clear 26.3; Potassium 5.9 mmol/L (3.4-4.6)
--- NOTE | 2020-03-20 11:15 | CONS ---
[facility] - General Date of Service: 03/20/20 Source: patient Exam Limitations: no limitations - History of Present Illness Initial Comments: Patient is a 44 year old male, recently admitted to the hospital regarding abdominal cellulitis. He was initially evaluated in the Emergency Department. A CT indicated diffuse cellulitis of the anterior abdominal wall, isolated to the subcutaneous fat outside of the abdominal cavity. An I&D was performed, and MRSA was confirmed by culture. Labs at admission indicated acute kidney injury. The patient states that the area has been red and swollen for several days prior to seeking treatment. He also describes a similar area to his right lower leg. That area healed without complication. The patient admits to moderate pain associated with the abdomen. There are markings placed to assess the erythema from admission. He is tolerating the zosyn and vancomycin antibiotics, and denies any adverse side effects. His medical history includes, cardiomyopathy, congestive heart failure, chronic renal failure, diabetes, GERD, gout, hyperlipidemia, hypertension and obstructive sleep apnea. Timing/Duration: getting worse Allergies/Adverse Reactions: Allergies No Known Allergies Allergy (Verified 03/18/20 17:08) Home Medications: Home Medications Medication Instructions Recorded Last Taken Furosemide [Lasix] 40 mg PO DAILY 09/16/12 06/29/19 Metoprolol Succinate [Toprol Xl] 200 mg PO DAILY #0 tablet.sa 06/11/13 06/29/19 amitriptyline 50 mg tablet 50 mg PO DAILY #30 tab 02/16/19 06/29/19 metformin 500 mg tablet,extended 500 mg PO BID #120 tab 02/16/19 06/29/19 release 24 hr semaglutide 0.5 mg SUBCUT .WEEKLY #2 ml 02/16/19 03/11/20 spironolactone 25 mg tablet 25 mg PO DAILY #30 tab 02/16/19 06/29/19 Atorvastatin Calcium [Lipitor] 80 mg PO HS 06/30/19 06/29/19 Fenofibrate 160 mg PO DAILY 06/30/19 06/29/19 Sacubitril/Valsartan [Entresto 97 1 ea PO DAILY 06/30/19 06/29/19 mg-103 mg Tablet] Allopurinol [Zyloprim 100 mg PO DAILY 03/18/20 Unknown (Allopurinol)] Insulin Regular, Human [Humulin R] 35 unit SQ HS 03/18/20 Unknown Insulin Regular, Human [Humulin R] 90 unit SQ 1200,1700 03/18/20 Unknown Insulin Regular, Human [Humulin R] 95 unit SQ .AM 03/18/20 Unknown Pregabalin [Lyrica] 200 mg PO TID 03/18/20 Unknown Procedures Application of other wound dressing (07/14/10) Application of splint (06/20/08) Closure of skin and subcutaneous tissue of other sites (07/17/03) Debridement of open fracture site, phalanges of hand (06/22/05) Drainage of Abdomen Skin, External Approach, Diagnostic (03/19/20) EXCISE BONE FOR GFT NEC (12/31/08) Insertion of Infusion Device into Right Cephalic Vein, Percutaneous Approach (03/19/20) Measurement of systemic arterial blood gases (02/18/14) Metacarpocarpal fusion (12/31/08) Open reduction of fracture with internal fixation, phalanges of hand (06/23/05) Other incision with drainage of skin and subcutaneous tissue (07/11/10) REMOV INT FIX-RADIUS/ULN (12/31/08) Removal of implanted devices from bone, carpals and metacarpals (04/14/13) Ultrasonography of Right Upper Extremity Veins, Guidance (03/19/20) Venous catheterization, not elsewhere classified (05/06/14) WRIST ARTHROSCOPY (08/20/08) Medications - Medications Current Medications: Current Medications Allopurinol (Zyloprim) 100 mg PO DAILY [facility] Stop: 04/18/20 09:01 Last Admin: 03/20/20 10:22 Dose: 100 mg Documented by: Amitriptyline HCl (Elavil) 50 mg PO DAILY [facility] Stop: 04/18/20 09:01 Last Admin: 03/20/20 10:22 Dose: Not Given Documented by: Fenofibrate (Lofibra) 134 mg PO DAILY [facility] Stop: 04/18/20 09:01 Last Admin: 03/20/20 10:22 Dose: 134 mg Documented by: Furosemide (Lasix) 40 mg PO DAILY [facility] Stop: 04/18/20 09:01 Last Admin: 03/20/20 10:23 Dose: 40 mg Documented by: Sodium Chloride (Sodium Chloride 0.9%) 1,000 mls @ 125 mls/hr IV .Q8H PRN PRN Reason: HYDRATION Stop: 04/18/20 04:00 Last Admin: 03/20/20 10:15 Dose: 125 mls/hr Documented by: Piperacillin Sod/Tazobactam (Sod 3.375 gm/ Dextrose/Water) 100 mls @ 25 mls/hr IV Q8H [facility]; Protocol Stop: 04/18/20 05:01 Last Infusion: 03/20/20 08:58 Dose: Infused Documented by: VANCOMYCIN/WATER FOR INJ (PEG) (Vancomycin) 2 gm in 400 mls @ 75 mls/hr IV Q24H [facility] Stop: 04/18/20 16:31 Last Infusion: 03/19/20 21:28 Dose: Infused Documented by: Insulin Human Regular (Humulin R) 35 units SC [facility] Stop: 04/18/20 21:01 Last Admin: 03/19/20 21:14 Dose: 35 units Documented by: Insulin Human Regular (Humulin R) 90 units SC 1200,1700 [facility] Stop: 04/18/20 12:01 Last Admin: 03/19/20 17:18 Dose: 90 units Documented by: Insulin Human Regular (Humulin R) 98 units SC 0700 [facility] Stop: 04/19/20 07:01 Last Admin: 03/20/20 07:44 Dose: 98 units Documented by: Metoprolol Succinate (Toprol Xl) 200 mg PO DAILY [facility] Stop: 04/18/20 09:01 Last Admin: 03/20/20 10:23 Dose: Not Given Documented by: Pregabalin (Lyrica) 200 mg PO TID [facility] Stop: 04/18/20 09:01 Last Admin: 03/20/20 10:26 Dose: 200 mg Documented by: Rosuvastatin Calcium (Crestor) 40 mg PO [facility] Stop: 04/18/20 21:01 Last Admin: 03/19/20 21:13 Dose: 40 mg Documented by: Spironolactone (Aldactone) 25 mg PO DAILY [facility] Stop: 04/18/20 09:01 Last Admin: 03/20/20 10:22 Dose: Not Given Documented by: Review of Systems - Review of Systems Generalized/Overall Review: Absent: Chills, Fever EENTM: Absent: Nose Congestion Respiratory: Absent: Cough, Shortness of Breath Cardiac: Present: Edema. Absent: Chest Pain Abdominal: Absent: Nausea Musculoskeletal: Present: Muscle Pain Skin: Present: Lesions, Change in Color Physical Examination - Exam Vital Signs: Vital Signs - Last Taken Temp 36.6 C 03/20/20 10:05 Pulse 87 03/20/20 10:23 Resp 21 H 03/20/20 10:05 BP 103/67 03/20/20 10:23 Pulse Ox 94 03/20/20 10:05 O2 Oxygen Delivery Method Room Air Constitutional: Present: Alert, Oriented x3, No distress, Morbidly obese ENT Exam: Present: hearing grossly normal Respiratory: Present: no respiratory distress Abdomen: Present: soft Extremity: Present: pedal edema Skin Exam: Present: warm/dry, other - area on the abdomen measuring 2 x 1.5 x 0.6cm. large amount of yellow necrosis. moderate amount of sanguenous drainage. induration measures ~ 6cm laterally. mild erythema, well within the initial marking. - Results and Findings: Lab/Microbiology results last 24 hrs: Abnormal/Pending Laboratory Last 24 HRS 03/19/20 12:01 Potassium 5.5 H Carbon Dioxide 23.5 L Anion Gap 16.0 H BUN 80 H Creatinine 3.08 H Est GFR (Non-Af Amer) 24 L BUN/Creatinine Ratio 26.0 H Random Glucose 234 H D Culture 03/18/20 13:53 Urine Culture - Final Urine,Clean Catch No Pathogens Isolated 03/18/20 13:50 Abscess Culture - Final Abdomen Methicillin Resistant S.aureus 03/18/20 14:23 Blood Culture - Preliminary Blood NO GROWTH 24 HOURS 03/18/20 14:10 Blood Culture - Preliminary Blood NO GROWTH 24 HOURS 03/18/20 17:38 - Final Nares MRSA Positive - Assessments/Findings (1) Cellulitis and abscess of trunk Diagnosis(s): The area appears improved from the initial description, and markings. Recommend using Aquacel Ag to the open area, covered with gauze and secured with tape. Wash with chlorhexadine at dressing changes. The dressing will be changed daily. Problem: Acute
[2020-03-20] MEDS ORDERED: INSULIN REGULAR, HUMAN 100 UNITS/ML VIAL SC ONE ×2 (12:13→21:30)
[2020-03-20] MEDS ORDERED: SODIUM POLYSTYRENE SULFON/SORB 15 G/60 ML ORAL.SUSP PO ONE (15:09)
[2020-03-20] MEDS: VANCOMYCIN/WATER FOR INJ (PEG) 2 GM/400 ML BAG IV SCH (17:07)
[2020-03-20] MEDS: ROSUVASTATIN CALCIUM 20 MG TABLET PO SCH (20:56)
[2020-03-20] MEDS: DOXYCYCLINE HYCLATE 100 MG TABLET PO SCH (20:56)
[2020-03-20 22:06] LABS: Hematocrit 42.6 % (42.0-52.0); Hemoglobin 13.1 gm/dL (13.5-18.0); Mean Cell Volume 86.4 fl (78-100); Mean Corpuscular Hemoglobin 26.6 pg (27-31); Mean Corpuscular Hgb Conc 30.8 g/dl (32-36); Mean Platelet Volume 10.6 fl (8-11.3); Neutrophil % 55.3 % (42-75.0); Platelet Count 175 K/mm3 (150-450); Red Blood Count 4.93 M/mm3 (4.7-6.0); Red Cell Distribution Width 15.5 % (11.5-14.0); White Blood Count 5.5 K/mm3 (4.0-10.5)
--- NOTE | 2020-03-20 22:51 | PN ---
Subjective - Date and Time Seen Date: 03/19/20 Time: 20:30 Subjective Narrative: Patient seen earlier this morning resting company in his chair. Patient's vital signs been stable though his blood pressures have been slightly soft. He is been afebrile. Creatinine and potassium currently being monitored. Repeat labs come back this afternoon. Discussed possible transfer with patient which he states he is okay with if needed but hopefully can stay here. He endorses some stomach pain and drainage but otherwise feels okay. He denies cough or shortness of breath. Objective - Review of Systems Generalized/Overall Review: Reports: Weakness. Denies: Chills, Fever EENTM: Reports: No Symptoms Reported Respiratory: Denies: Cough, Shortness of Breath Cardiac: Denies: Chest Pain, Palpitations Abdominal: Denies: Nausea, Vomiting, Abdominal Pain Genitourinary Symptoms: Reports: No Symptoms Reported Skin: Reports: Other - Cellulitic infection with draining abscess just above the umbilicus. Redness improving, still slightly painful - Vitals Vitals: Last Vital Signs Temp 36.6 C 03/20/20 18:00 Pulse 87 03/20/20 18:00 Resp 18 03/20/20 18:00 BP 124/69 03/20/20 18:00 Pulse Ox 96 03/20/20 18:00 - Abnormal Lab Findings Abnormal Lab Findings: Abnormal Lab Results 03/20/20 03/20/20 03/20/20 Range/Units 06:30 22:00 22:00 Hgb 13.1 L (13.5-18.0) gm/dL MCH 26.6 L (27-31) pg MCHC 30.8 L (32-36) g/dl RDW 15.5 H (11.5-14.0) % Immature Gran % (Auto) 0.50 H (0.001-0.429) % Eosinophils % 4.8 H (0.0-3.0) % Potassium 5.9 H 5.3 H (3.4-4.6) mmol/L BUN 79 H (6-23) mg/dL Creatinine 2.88 H (0.4-1.4) mg/dL Est GFR (Non-Af Amer) 25 L (60-130) mL/min BUN/Creatinine Ratio 27.4 H (9.0-21.6) Random Glucose 116 H D (70-110) mg/dL - Exam Constitutional: Present: Alert, Oriented x3, Mild distress, Morbidly obese Respiratory: Present: lungs clear, normal breath sounds Cardiovascular/Chest: Present: regular rate, rhythm, no murmur Abdomen: Present: Normal bowel sounds - In, firm - Belly indurated and firm roughly 4 inches in diameter around abscess, tender from the infection only Extremity: Present: lower extremity edema - Trace bilaterally, mid abreu. Absent: leg pain Skin Exam: Present: other - Cellulitic abdominal infection, improving, receding from outline on vancomycin and Zosyn Appearance: Present: appropriate insight, disheveled Eye contact: Present: cooperative, good eye contact Thoughts: Present: normal thought pattern, normal mood /affect Assessment/Plan Plan Narrative: 44-year-old male admitted for an abdominal abscess with surrounding cellulitis, currently responded to vancomycin and Zosyn. Awaiting speciation of culture to narrow down antibiotic treatment options. Patient given a 500 cc bolus and restarted normal saline this morning after kidney function came back showing a decline compared to admission. Repeated BMP this afternoon following bolus showed a decrease in creatinine with a slightly increased GFR. Potassium did increase a little bit. Patient is getting quite a bit of insulin though for his diabetes which that with potassium, will continue to monitor. Did stop his spironolactone yesterday so this should help. Sugars ranging from 120s to 220s on current treatment plan, will continue to adjust diet but sugars better controlled than initially when he came in. Continue to monitor sugars before meals at bedtime. Will adjust insulin as needed. Blood pressure also slightly improved with the bolus, will continue to monitor. Maintaining a map greater than 65 though so we should be okay at this time. SCDs for DVT prophylaxis. Nurse to call with questions or concerns - Problems/Diagnosis (1) Cellulitis and abscess of trunk Problem: Acute (2) Acute renal failure Problem: Acute Qualifiers: Acute renal failure type: unspecified Qualified Code(s): N17.9 - Acute ki dney failure, unspecified (3) Hypotension Problem: Acute Qualifiers: Hypotension type: other hypotension type Qualified Code(s): I95.89 - Other hypotension (4) Diabetes mellitus, insulin dependent (IDDM), controlled Problem: Chronic (5) Renal insufficiency Problem: Acute
--- NOTE | 2020-03-20 23:02 | PN ---
Subjective - Date and Time Seen Date: 03/20/20 Time: 17:51 Subjective Narrative: Patient currently sitting comfortably in his chair eating dinner. Vital signs are stable and is been afebrile. No acute events overnight, blood pressures still slightly soft but improving. He does appear to be more comfortable today than he has since being here. He does endorse some pain in his belly where the packing takes place but overall feels like he is starting to see improvement. Objective - Review of Systems Generalized/Overall Review: Denies: Weakness, Chills EENTM: Reports: No Symptoms Reported Respiratory: Denies: Cough, Shortness of Breath Cardiac: Reports: Edema - Trace edema bilaterally. Denies: Chest Pain, Palpitations Abdominal: Denies: Nausea, Vomiting, Hematemesis Musculoskeletal Complaints: Reports: Other - Abdominal pain over infection Neurological: Reports: No Symptoms Reported Skin: Reports: Other - Cellulitic rash with abscess over belly, improving - Vitals Vitals: Last Vital Signs Temp 36.6 C 03/20/20 18:00 Pulse 87 03/20/20 18:00 Resp 18 03/20/20 18:00 BP 124/69 03/20/20 18:00 Pulse Ox 96 03/20/20 18:00 - Abnormal Lab Findings Abnormal Lab Findings: Abnormal Lab Results 03/20/20 03/20/20 03/20/20 Range/Units 06:30 22:00 22:00 Hgb 13.1 L (13.5-18.0) gm/dL MCH 26.6 L (27-31) pg MCHC 30.8 L (32-36) g/dl RDW 15.5 H (11.5-14.0) % Immature Gran % (Auto) 0.50 H (0.001-0.429) % Eosinophils % 4.8 H (0.0-3.0) % Potassium 5.9 H 5.3 H (3.4-4.6) mmol/L BUN 79 H (6-23) mg/dL Creatinine 2.88 H (0.4-1.4) mg/dL Est GFR (Non-Af Amer) 25 L (60-130) mL/min BUN/Creatinine Ratio 27.4 H (9.0-21.6) Random Glucose 116 H D (70-110) mg/dL - Exam Constitutional: Present: Alert, Oriented x3, Mild distress - illness Respiratory: Present: lungs clear - decreased breath sounds. Absent: respiratory distress Cardiovascular/Chest: Present: regular rate, rhythm, no murmur Skin Exam: Present: other - Belly indurated and firm roughly 4 inches in diameter around abscess, tender from the infection only. redness receding significantly from outline of belly on admission Neurologic: Present: no motor/sensory deficits, alert, normal mood/affect, oriented x 3 Appearance: Present: appropriate appearance, appropriate insight Eye contact: Present: cooperative, good eye contact Thoughts: Present: normal thought pattern, normal mood /affect Assessment/Plan Plan Narrative: 44-year-old male admitted for cellulitic infection and abdominal abscessboth improving. Speciation came out, stop Zosyn today continue vancomycin. We will likely transition him over to doxycycline so we will start that this evening and probably stop vancomycin tomorrow. Wound care currently seeing patient as well, appreciate their help. Kidney function again improved overnight compared to yesterday's labs but his potassium also increased. Due to mildly improving kidney function with an increase in his potassium, case discussed with Dr. Waller of nephrology had a [place] who recommended insulin to help with his potassium which he is already on. We will also add Kayexalate to see if this will help bring his potassium down. We will repeat a potassium this evening. Otherwise patient's infection is improving. Repeat BMP in the morning Blood pressure is also significantly improved. Monitoring fluid status, patient does not appear to be fluid overloaded. Significantly dehydrated upon admission which should help with his kidney function. Will monitor closely though as patient does have a history of congestive heart failure. Continue consistent carbohydrate and renal diet. Continue insulin for his sugars, will monitor aCHS. Adjusting his insulin daily depending on his blood sugars in his diet. We will continue to do so while we fight his infection. Holding spironolactone. We will continue Lasix. We will cut metoprolol in half and restart tomorrow if his pressures appear to be more stable. Continue SCDs for DVT prophylaxis. Encourage ambulation. Nurse to call questions or concerns. - Problems/Diagnosis (1) Cellulitis and abscess of trunk Problem: Acute (2) Acute renal failure Problem: Acute Qualifiers: Acute renal failure type: unspecified Qualified Code(s): N17.9 - Acute kidney failure, unspecified (3) Hypotension Problem: Acute Qualifiers: Hypotension type: other hypotension type Qualified Code(s): I95.89 - Other hypotension (4) Diabetes mellitus, insulin dependent (IDDM), controlled Problem: Chronic (5) Renal insufficiency Problem: Acute
[2020-03-21] MEDS: NORMAL SALINE 1,000 ML IV PRN ×3 (02:44→19:10)
[2020-03-21 07:26] LABS: BUN/Creatinine Ratio 27.8 (9.0-21.6); Calcium * 9.3 mg/dL (7.9-10.9); Carbon Dioxide 21.5 mmol/L (24-32.6); Estimated Creat Clear 35.8; Potassium 5.5 mmol/L (3.4-4.6)
[2020-03-21] MEDS ORDERED: SODIUM POLYSTYRENE SULFON/SORB 15 G/60 ML ORAL.SUSP PO ONE (08:54)
[2020-03-21] MEDS ORDERED: INSULIN REGULAR, HUMAN 100 UNITS/ML VIAL SC ONE ×3 (09:00→17:24)
[2020-03-21] MEDS: INSULIN REGULAR, HUMAN 100 UNITS/ML VIAL SC SCH ×4 (10:04→20:53)
[2020-03-21] MEDS: AMITRIPTYLINE HCL 50 MG TABLET PO SCH (10:05)
[2020-03-21] MEDS: FENOFIBRATE,MICRONIZED 134 MG CAPSULE PO SCH (10:06)
[2020-03-21] MEDS: PREGABALIN 50 MG CAPSULE PO SCH ×3 (10:06→17:47)
[2020-03-21] MEDS: ALLOPURINOL 100 MG TABLET PO SCH (10:06)
[2020-03-21] MEDS: FUROSEMIDE 40 MG TABLET PO SCH (10:07)
[2020-03-21] MEDS: DOXYCYCLINE HYCLATE 100 MG TABLET PO SCH ×2 (10:07→20:25)
[2020-03-21] MEDS: METOPROLOL SUCCINATE 100 MG TABLET.SA PO SCH ×2 (10:43→10:57)
[2020-03-21] MEDS ORDERED: VANCOMYCIN HCL LEVEL XX ONE (16:00)
[2020-03-21] MEDS: ROSUVASTATIN CALCIUM 20 MG TABLET PO SCH (20:25)
[2020-03-21] MEDS ORDERED: INSULIN REGULAR, HUMAN 100 UNITS/ML VIAL SC SCH (21:15)
--- NOTE | 2020-03-21 22:23 | PN ---
Subjective - Date and Time Seen Date: 03/21/20 Time: 08:10 Subjective Narrative: Patient starting to feel much better.infection and drainage improving. No acute events over night, VSSAF. Blood pressures improved. Kidney function and potassium also significant improved. Objective - Review of Systems Generalized/Overall Review: Denies: Weakness, Chills, Fever EENTM: Reports: No Symptoms Reported Respiratory: Denies: Cough, Shortness of Breath Cardiac: Denies: Chest Pain, Palpitations Abdominal: Denies: Nausea, Vomiting, Abdominal Pain Genitourinary Symptoms: Reports: No Symptoms Reported Neurological: Reports: No Symptoms Reported Endocrine: Reports: No Symptoms Reported - Vitals Vitals: Last Vital Signs Temp 36.3 C 03/21/20 19:37 Pulse 82 03/21/20 19:37 Resp 20 03/21/20 19:37 BP 124/75 03/21/20 19:37 Pulse Ox 98 03/21/20 19:37 - Abnormal Lab Findings Abnormal Lab Findings: Abnormal Lab Results 03/20/20 03/20/20 03/21/20 Range/Units 22:00 22:00 07:05 Hgb 13.1 L (13.5-18.0) gm/dL MCH 26.6 L (27-31) pg MCHC 30.8 L (32-36) g/dl RDW 15.5 H (11.5-14.0) % Immature Gran % (Auto) 0.50 H (0.001-0.429) % Eosinophils % 4.8 H (0.0-3.0) % Potassium 5.3 H 5.5 H (3.4-4.6) mmol/L Chloride 107 H (97-106) mmol/L Carbon Dioxide 21.5 L (24-32.6) mmol/L Anion Gap 15.0 H (6.8-13.8) mmol/L BUN 59 H (6-23) mg/dL Creatinine 2.12 H D (0.4-1.4) mg/dL Est GFR (Non-Af Amer) 36 L D (60-130) mL/min BUN/Creatinine Ratio 27.8 H (9.0-21.6) Random Glucose 131 H (70-110) mg/dL 03/21/20 Range/Units 21:00 Hgb (13.5-18.0) gm/dL MCH (27-31) pg MCHC (32-36) g/dl RDW (11.5-14.0) % Immature Gran % (Auto) (0.001-0.429) % Eosinophils % (0.0-3.0) % Potassium 5.3 H (3.4-4.6) mmol/L Chloride (97-106) mmol/L Carbon Dioxide (24-32.6) mmol/L Anion Gap (6.8-13.8) mmol/L BUN (6-23) mg/dL Creatinine (0.4-1.4) mg/dL Est GFR (Non-Af Amer) (60-130) mL/min BUN/Creatinine Ratio (9.0-21.6) Random Glucose (70-110) mg/dL - Exam Constitutional: Present: Alert, Oriented x3, Morbidly obese, Looks Older than stated age Respiratory: Present: lungs clear, other - distant lung sounds due to body habitus Cardiovascular/Chest: Present: regular rate, rhythm, edema - trace , bilat LEs. Skin Exam: Absent: normal color - belly indurated and firm. Some drainage from abscess still. roughly 4 inches in diameter around abscess, tender from the infection only. redness receding significantly, improvement from outline of belly on admission Appearance: Present: disheveled, impaired insight Eye contact: Present: cooperative, good eye contact Thoughts: Present: normal thought pattern, normal mood /affect Assessment/Plan Plan Narrative: 44-year-old male admitted for cellulitic infection and abdominal abscessboth improving. Much improved with decreasing redness and decreasing tenderness from antibiotics. Stopped vanc tonight, will start on oral abx today. Wound care currently seeing patient as well, appreciate their help. Kidney function significantly improved overnight compared to yesterday's labs. Monitoring potassium still, kayexalate helped. Repeat BMP in the morning Blood pressure is also significantly improved. Monitoring fluid status. Significantly dehydrated upon admission which should help with his kidney function. Will monitor closely though as patient does have a history of congestive heart failure. Continue consistent carbohydrate and renal diet. Continue insulin for his sugars, will monitor aCHS. Adjusting his insulin daily depending on his blood sugars and potassium. Holding spironolactone. We will continue Lasix. We will cut metoprolol in half and restart tomorrow if his pressures appear to be more stable. Continue SCDs for DVT prophylaxis. Encourage ambulation. Nurse to call questions or concerns. Likely discahrge home tomorrow as long as potassium and kidney function improved. - Problems/Diagnosis (1) Cellulitis and abscess of trunk Problem: Acute (2) Acute renal failure Problem: Acute Qualifiers: Acute renal failure type: unspecified Qualified Code(s): N17.9 - Acute kidney failure, unspecified (3) Hypotension Problem: Acute Qualifiers: Hypotension type: other hypotension type Qualified Code(s): I95.89 - Other hypotension (4) Diabetes mellitus, insulin dependent (IDDM), controlled Problem: Chronic (5) Renal insufficiency Problem: Acute
[2020-03-22] MEDS: NORMAL SALINE 1,000 ML IV PRN (03:10)
[2020-03-22 07:55] LABS: Anion Gap 10.9 mmol/L (6.8-13.8); BUN/Creatinine Ratio 25.8 (9.0-21.6); Calcium * 9.6 mg/dL (7.9-10.9); Estimated Creat Clear 46.5; Potassium 4.9 mmol/L (3.4-4.6)
[2020-03-22] MEDS ORDERED: INSULIN REGULAR, HUMAN 100 UNITS/ML VIAL SC ONE ×2 (07:59→12:47)
[2020-03-22] MEDS: INSULIN REGULAR, HUMAN 100 UNITS/ML VIAL SC SCH ×2 (08:15→12:54)
[2020-03-22] MEDS: PREGABALIN 50 MG CAPSULE PO SCH ×2 (09:00→13:00)
[2020-03-22] MEDS: ALLOPURINOL 100 MG TABLET PO SCH (09:01)
[2020-03-22] MEDS: FENOFIBRATE,MICRONIZED 134 MG CAPSULE PO SCH (09:01)
[2020-03-22] MEDS: FUROSEMIDE 40 MG TABLET PO SCH (09:01)
[2020-03-22] MEDS: METOPROLOL SUCCINATE 100 MG TABLET.SA PO SCH (09:01)
[2020-03-22] MEDS: DOXYCYCLINE HYCLATE 100 MG TABLET PO SCH (09:02)
[2020-03-22] MEDS: AMITRIPTYLINE HCL 50 MG TABLET PO SCH (09:50)
--- NOTE | 2020-03-22 11:24 | DS ---
(1) Cellulitis and abscess of trunk Problem: Acute (2) Acute renal failure Problem: Acute Qualifiers: Acute renal failure type: unspecified Qualified Code(s): N17.9 - Acute kidney failure, unspecified (3) Hypotension Problem: Acute Qualifiers: Hypotension type: other hypotension type Qualified Code(s): I95.89 - Other hypotension (4) Diabetes mellitus, insulin dependent (IDDM), controlled Problem: Chronic (5) Renal insufficiency Problem: Acute (6) Hyperkalemia Problem: Acute (7) Hypotension Problem: Acute Date of Discharge:: 03/22/20 Hospital Course: Patient admitted to the hospital for nonlocalized abscess of the abdomen as well as surrounding cellulitis. Significant improvement in drainage as well as redness/induration of his belly on day of discharge. Patient will be sent home with Hibiclens to be used to clean it daily and will follow with wound care next week. No packing needed. Patient initially started on vancomycin and Zosyn until speciation came back growing MRSA. Patient was transitioned to oral doxycycline. Patient to continue doxycycline for another week. Pertinent lab work included a normal white count, normal lactic acid while here. Patient initially with dehydration and in acute renal failure on top of his chronic kidney disease. Creatinine elevated as high as 3.3 but returned to 1.69 on day of discharge. GFR as low as 21 improved to 49 on day of discharge. Patient to follow-up at the hospital on Wednesday (3 days from now) for repeat BMP to monitor potassium and kidney function. Patient advised to make sure he is taking plenty of water in order to keep his kidney function improved. Patient not started on Bactrim due to kidney function. Otherwise patient been afebrile while here and is vital signs been fairly stable aside from some soft blood pressures that resolved with fluid resuscitation. Of note patient's blood sugars also have been well controlled but on a much lower dose of insulin that he was used to taking. Patient to follow with PCP to better regulate his blood sugars. We will send him out on his regular insulin to be taken aCHS but at 20 units instead of his normal dose which is significantly higher. Patient's metoprolol also will be cut in half prior to discharge due to his lower blood pressures which will need to be adjusted if needed by his PCP in the future. Patient would not be sent home on Aldactone due to his potassium levels, again this would need to be monitored. No other changes to his chronic medications. Procedures Performed: none Results and Findings: Pending Mircobiology Results 03/18/20 14:23 Blood Blood Culture - Preliminary NO GROWTH AFTER 48 HOURS 03/18/20 14:10 Blood Blood Culture - Preliminary NO GROWTH AFTER 48 HOURS Lab Pending Results 03/18/20 13:41: Urine Color Yellow, Urine Appearance Slightly cloudy, Urine pH 5.5, Ur Specific [place] 1.020, Urine Protein Negative, Urine Glucose (UA) Negative, Urine Ketones Negative, Urine Blood Negative, Urine Nitrate Negative, Urine Bilirubin Negative, Urine Urobilinogen Normal, Ur Leukocyte Esterase 25 H, Urine RBC 0-5, Urine WBC 5-10 H, Ur Epithelial Cells 5-10 H, Urine Bacteria 1+ H, Urine Culture Comments Culture to follow 03/18/20 14:10: WBC 7.8, RBC 4.89, Hgb 13.3 L, Hct 41.7 L, MCV 85.3, MCH 27.2, MCHC 31.9 L, RDW 15.5 H, Plt Count 170, MPV 10.7, Immature Gran % (Auto) 0.50 H, Immature Gran # (Auto) 0.04 H, Neutrophils % 68.6, Lymphocytes % 21.9, Monocytes % 7.3, Eosinophils % 1.4, Basophils % 0.3, Nucleated RBC % 0.0, Neutrophils # 5.4, Lymphocytes # 1.71, Monocytes # 0.6, Eosinophils # 0.1, Absolute Basophils 0.0 03/18/20 14:10: Sodium 136, Plasma Sodium 136, Potassium 5.2 H D, Chloride 104, Carbon Dioxide 24.3, Anion Gap 12.9, BUN 63 H D, Creatinine 2.67 H D, Est GFR (Non-Af Amer) 28 L D, BUN/Creatinine Ratio 23.6 H, Random Glucose 83, Calcium 8.7, Calcium Adj for Albumin 9.5, Total Bilirubin 0.5, AST 31, ALT 26, Alkaline Phosphatase 55, C-Reactive Prot, Quant Less than 0.2, Total Protein 7.2, Albumin 2.6 L 03/18/20 14:10: Lactic Acid, Venous 0.8 03/19/20 06:28: WBC 6.2 D, RBC 4.76, Hgb 13.0 L, Hct 41.6 L, MCV 87.4, MCH 27.3, MCHC 31.3 L, RDW 15.8 H, Plt Count 148 L, MPV 10.3, Immature Gran % (Auto) 0.60 H, Immature Gran # (Auto) 0.04 H, Neutrophils % 57.3, Lymphocytes % 29.1, Monocytes % 8.7, Eosinophils % 4.0 H, Basophils % 0.3, Nucleated RBC % 0.0, Neutrophils # 3.5, Lymphocytes # 1.80, Monocytes # 0.5, Eosinophils # 0.3, Absolute Basophils 0.0 03/19/20 06:28: Sodium 136, Plasma Sodium 137, Potassium 5.2 H, Chloride 101, Carbon Dioxide 25.9, Anion Gap 14.3 H, BUN 78 H, Creatinine 3.33 H D, Est GFR (Non-Af Amer) 22 L D, BUN/Creatinine Ratio 23.4 H, Random Glucose 172 H D, Calcium 8.9 03/19/20 12:01: Sodium 135, Plasma Sodium 137, Potassium 5.5 H, Chloride 101, Carbon Dioxide 23.5 L, Anion Gap 16.0 H, BUN 80 H, Creatinine 3.08 H, Est GFR (Non-Af Amer) 24 L, BUN/Creatinine Ratio 26.0 H, Random Glucose 234 H D, Calcium 8.9 03/20/20 06:30: Sodium 136, Plasma Sodium 136, Potassium 5.9 H, Chloride 105, Carbon Dioxide 25.0, Anion Gap 11.9, BUN 79 H, Creatinine 2.88 H, Est GFR (Non- Af Amer) 25 L, BUN/Creatinine Ratio 27.4 H, Random Glucose 116 H D, Calcium 9.2 03/20/20 22:00: Potassium 5.3 H 03/20/20 22:00: WBC 5.5, RBC 4.93, Hgb 13.1 L, Hct 42.6, MCV 86.4, MCH 26.6 L, MCHC 30.8 L, RDW 15.5 H, Plt Count 175, MPV 10.6, Immature Gran % (Auto) 0.50 H, Immature Gran # (Auto) 0.03, Neutrophils % 55.3, Lymphocytes % 31.3, Monocytes % 7.7, Eosinophils % 4.8 H, Basophils % 0.4, Nucleated RBC % 0.0, Neutrophils # 3.0, Lymphocytes # 1.71, Monocytes # 0.4, Eosinophils # 0.3, Absolute Basophils 0.0 03/21/20 07:05: Sodium 138, Plasma Sodium 138, Potassium 5.5 H, Chloride 107 H, Carbon Dioxide 21.5 L, Anion Gap 15.0 H, BUN 59 H, Creatinine 2.12 H D, Est GFR (Non-Af Amer) 36 L D, BUN/Creatinine Ratio 27.8 H, Random Glucose 131 H, Calcium 9.3 03/21/20 21:00: Potassium 5.3 H 03/22/20 07:40: Sodium 139, Plasma Sodium 139, Potassium 4.9 H, Chloride 107 H, Carbon Dioxide 26.0, Anion Gap 10.9, BUN 42 H, Creatinine 1.63 H D, Est GFR (Non-Af Amer) 49 L D, BUN/Creatinine Ratio 25.8 H, Random Glucose 121 H, Calcium 9.6 Discharge Location: Home Disposition: Home self-care Condition: Stable Discharge Activity: Activity as tolerated Discharge Diet: Consistent carbs, Low Potassium Referrals: Yael Murdock MD [Primary Care Provider] - One Week Prescriptions (Any new or edited meds): Insulin Regular, Human [Humulin R U-500] 20 unit SQ ACHS #1 vial Transmission Status: Pending to [facility] Metoprolol Succinate [Toprol Xl] 100 mg PO DAILY #30 tablet.sa Transmission Status: Pending to [facility] Doxycycline Hyclate [Vibratab] 100 mg PO BID #14 tab Transmission Status: Pending to [facility] Complete Home Medications List: Complete Home Medication List: Furosemide [Lasix] 40 mg PO DAILY 09/16/12 Metoprolol Succinate [Toprol Xl] 200 mg PO DAILY #0 tablet.sa 06/11/13 amitriptyline 50 mg tablet 50 mg PO HS #30 tab 02/16/19 semaglutide 0.5 mg SUBCUT .WEEKLY #2 ml 02/16/19 Atorvastatin Calcium [Lipitor] 80 mg PO HS 06/30/19 Fenofibrate 160 mg PO DAILY 06/30/19 Sacubitril/Valsartan [Entresto 97 mg-103 mg Tablet] 1 ea PO DAILY 06/30/19 Allopurinol [Zyloprim] 100 mg PO DAILY 03/18/20 Insulin Regular, Human [Humulin R U-500] 90 unit SQ 1200,1700 03/18/20 Insulin Regular, Human [Humulin R U-500] 95 unit SQ .AM 03/18/20 Pregabalin [Lyrica] 200 mg PO TID 03/18/20 Doxycycline Hyclate [Vibratab] 100 mg PO BID #14 tab 03/22/20 Insulin Regular, Human [Humulin R U-500] 20 unit SQ ACHS #1 vial 03/22/20 Metoprolol Succinate [Toprol Xl] 100 mg PO DAILY #30 tablet.sa 03/22/20 Amb Orders for Discharge: Basic Metabolic Panel Time Frame: 03/25/20, Facility: [facility], Location: Laboratory
[2020-03-22 13:08] VITALS: BP 139/78
[2020-03-22] MEDS ORDERED: AMITRIPTYLINE HCL 50 MG TABLET PO SCH (21:00)
== END 2020-03-22 13:30 | disposition home or self-care (01) | DRG 683 ==
LOC: MS 13:01 → ER 13:01 → MS 16:55
PROVIDERS: ADMIT Family Medicine; ATTEND Family Medicine
DX: E11.65 Type 2 diabetes mellitus with hyperglycemia; L02.211 Cutaneous abscess of abdominal wall; Z68.44 Body mass index [BMI] 60.0-69.9, adult; L03.311 Cellulitis of abdominal wall; E66.01 Morbid (severe) obesity due to excess calories; F17.210 Nicotine dependence, cigarettes, uncomplicated; N18.3 Chronic kidney disease, stage 3 (moderate); I95.89 Other hypotension; I13.0 Hypertensive heart and chronic kidney disease with heart failure and stage 1 through stage 4 chronic kidney disease, or unspecified chronic kidney disease; E11.22 Type 2 diabetes mellitus with diabetic chronic kidney disease; I50.9 Heart failure, unspecified; E87.5 Hyperkalemia; B95.62 Methicillin resistant Staphylococcus aureus infection as the cause of diseases classified elsewhere; N17.9 Acute kidney failure, unspecified
CPT/HCPCS: 10060; 36415; 74176; 80048; 80053; 81001; 83605; 84132; 85025; 86140; 87040; 87070; 87077; 87081; 87086; 87186; 96365; 96366; 96367; 96375; 99283; 99285; G0378; J2405